=== PATIENT | female | born 1980 | race Caucasian/White ===

== ENCOUNTER 2016-06-24 15:12 | Observation (INO) | payer MEDICAID, OTHER ==
[~2016-06-24] VITALS: Ht 172.7 cm; Wt 70.1 kg
[2016-06-24] VITALS (7 sets, daily range): BP systolic 104–131; BP diastolic 52–67; PULSE 63–78; RESP 18–20; TEMP 97.8–98.1; O2SAT 97–100
[~2016-06-24 15:12] MED LIST: BENA25TA8 PO; HYDR-3133 PO; PRED20 PO; RANI150 PO
[2016-06-24] MEDS ORDERED: MORPHINE SULFATE 4 MG/ML INJ IV PUSH ONE (15:30)
[2016-06-24] MEDS ORDERED: SODIUM CHLORIDE 0.9% FLUSH 5 ML FLUSH IVF PRN ×2 (15:30→16:45)
--- NOTE | 2016-06-24 15:47 | PD ---
HPI Chief Complaint: Chest Pain Time Seen by Provider: 15:18 Travel History International Travel<30 days: No Contact w/Intl Traveler<30days: No Traveled to known affect area: No History of Present Illness HPI Patient is a 36-year-old female who comes in complaining of chest pain and palpitations. She says for the past few days she has felt palpitations on and off. She says that yesterday the palpitations were accompanied by a pressure- like pain in her chest. She says that went away, but it came on this afternoon while she was sitting down. She says the pain spread up to her jaw and down her left arm. She says it feels like a pressure and a tightness in her chest. She says it makes her feel like she is unable to breathe. She denies nausea or vomiting. She denies any recent travel, she is not on any control. She denies any leg swelling or calf pain. She says she's had a slight cough, but no fever or chills. She is a smoker, but denies any recreational drug use. Her father recently had a heart attack and was diagnosed with CHF. [facility] Past Medical History Asthma: Yes (CHILDHOOD) Cancer: No Cardiovascular Problems: No Diabetes: No Diminished Hearing: No Endocrine: No Gastrointestinal Disorders: Yes (reflux) GERD: Yes Genitourinary: No Headaches: Yes Hepatitis: No Hiatal Hernia: No Hypertension: No Immune Disorder: No Musculoskeletal: Yes (spinal pain neck and back) Neurologic: Yes (headaches and migraines) Psychiatric: No Reproductive: Yes (fibroids urinary leakage) Respiratory: No Immunizations Current: Yes Thyroid Disease: No ?: Not Menopausal: No : 3 Para: 3 Miscarriage: 0 : 1 Ovarian Cysts: Yes Past Surgical History Abdominal Surgery: Yes (laproscopic surgery for endometriosis) AICD: No Genitourinary Surgery: Yes (ENDOMITRIOSIS) Gynecologic Surgery: Yes (laparoscopy) Hysterectomy: Yes Joint Replacement: No Pacemaker: No Other Surgery: Yes (LAPROSCOPY) Social History Alcohol Use: Yes (SOCIAL) Tobacco Use: Yes (1 PPD) Substance Use: No Allergies-Medications (Allergen,Severity, Reaction): Coded Allergies: Succinylcholine (Verified Allergy, Severe, maternal grandmother had hypertension and bronchospasms, 12/20/15) Tylenol (Verified Allergy, Severe, stomach pain, 12/20/15) Reported Meds & Prescriptions Reported Meds & Active Scripts Active Deltasone 20 Mg Tab (Prednisone) 20 Mg Tab 60 Mg PO DAILY Hydroxyzine Hcl (Hydroxyzine HCl) 25 Mg Tab 25 Mg PO Q8H Deltasone 20 Mg Tab (Prednisone) 20 Mg Tab 40 Mg PO DAILY 5 Days Zantac 150 Mg Tab (Ranitidine HCl) 150 Mg Tab 150 Mg PO DAILY Reported Benadryl 25 mg tab (Diphenhydramine HCl) 25 Mg Tab 25 Mg PO Q4H Review of Systems Except as stated in HPI: all other systems reviewed are Neg General / Constitutional: No: Fever, Chills Eyes: No: Blurred Vision HENT: No: Headaches, Lightheadedness Cardiovascular: Positive: Chest Pain or Discomfort, Palpitations Respiratory: Positive: Shortness of Breath Gastrointestinal: No: Nausea, Vomiting, Abdominal Pain Musculoskeletal: No: Myalgias, Edema Skin: No Rash, No Itching Neurologic: No: Weakness Physical Exam Narrative GENERAL: Awake and alert, in no acute distress. SKIN: Warm and dry. HEAD: Atraumatic. Normocephalic. EYES: Pupils equal and round. No scleral icterus. ENT: Mucous membranes pink and moist. NECK: Trachea midline. No JVD. CARDIOVASCULAR: Regular rate and rhythm. No murmur appreciated. RESPIRATORY: No accessory muscle use. Clear to auscultation. Breath sounds equal bilaterally. GASTROINTESTINAL: Abdomen soft, non-tender, nondistended. MUSCULOSKELETAL: No obvious deformities. No clubbing. No cyanosis. No edema. No calf tenderness. NEUROLOGICAL: Awake and alert. No obvious cranial nerve deficits. Motor grossly within normal limits. Normal speech. PSYCHIATRIC: Appropriate mood and affect; insight and judgment normal. Data Data Last Documented VS Vital Signs Date Time Temp Pulse Resp B/P Pulse Ox O2 Delivery O2 Flow Rate FiO2 06/24/16 15:39 98 Room Air 06/24/16 15:17 97.8 78 18 131/67 Orders Ckmb (Isoenzyme) Profile (06/24/16 15:24) Complete Blood Count With Diff (06/24/16 15:24) Comprehensive Metabolic Panel (06/24/16 15:24) D-Dimer (06/24/16 15:24) Magnesium (Mg) (06/24/16 15:24) Prothrombin Time / Inr (Pt) (06/24/16 15:24) Act Partial Throm Time (Ptt) (06/24/16 15:24) Troponin I (06/24/16 15:24) Ecg Monitoring (06/24/16 15:24) Bilateral Bp Monitoring (06/24/16 15:24) Iv Access Insert/Monitor (06/24/16 15:24) Oximetry (06/24/16 15:24) Morphine Inj (Morphine Inj) (06/24/16 15:30) Sodium Chloride 0.9% Flush (Ns Flush) (06/24/16 15:30) Chest, Pa & Lat (06/24/16 15:24) MDM Medical Decision Making Medical Screen Exam Complete: Yes Emergency Medical Condition: Yes Medical Record Reviewed: Yes Interpretation(s) ECG shows normal sinus rhythm at 82, no ST elevation or depression, normal intervals. Differential Diagnosis Pneumonia versus pneumothorax versus costochondritis versus ACS versus NSTEMI Narrative Course Patient is a 36-year-old female comes in complaining of chest pain that radiates to her jaw and left arm. Exam shows no acute abnormalities. IV established, patient connected to the cardiac technologist. Labs sent. Chest x-ray performed. Aspirin held as patient reports taking 2 packets of BC powder today. Patient signed out to Dr. Perry to follow up labs and disposition appropriately. Rose Larson MD Jun 24, 2016 15:47
--- NOTE | 2016-06-24 15:48 | RADHPO ---
EXAM DATE/TIME: 06/24/2016 15:27 [place] COMPARISON: No previous studies available for comparison. INDICATIONS : Chest pain and shortness of breath for a day. MEDICAL HISTORY : None. SURGICAL HISTORY : None. ENCOUNTER: Initial ACUITY: 1 day PAIN SCORE: 8/10 LOCATION: Bilateral chest FINDINGS: PA and lateral views of the chest demonstrate the lungs to be symmetrically aerated without evidence of mass, infiltrate or effusion. The cardiomediastinal contours are unremarkable. Osseous structure s are intact. CONCLUSION: No acute disease. Fran Chris MD on June 24, 2016 at 15:47 Board Certified Radiologist. This report was verified electronically.
[2016-06-24 16:00] LABS: AUTOMATED NEUTROPHIL # 3.8 TH/MM3 (1.8-7.7); BASOPHIL # 0.1 TH/MM3 (0-0.2); BASOPHIL % 1.5 % (0.0-2.0); EOSINOPHIL # 0.1 TH/MM3 (0-0.4); EOSINOPHIL % 1.5 % (0.0-4.0); HEMATOCRIT 38.1 % (35.0-46.0); HEMO FLAGS DIFF FINAL; LYMPH % 28.4 % (9.0-44.0); LYMPHOCYTE # 1.9 TH/MM3 (1.0-4.8); MEAN CELL VOLUME 89.1 FL (80.0-100.0); MEAN CORPUSCULAR HEMOGLOBIN 31.2 PG (27.0-34.0); MEAN CORPUSCULAR HGB CONC 35.1 % (32.0-36.0); MONO % 10.6 % (0.0-8.0); PLATELET COUNT 223 TH/MM3 (150-450); RED BLOOD COUNT 4.27 MIL/MM3 (4.00-5.30); RED CELL DISTRIBUTION WIDTH 11.9 % (11.6-17.2); WHITE BLOOD COUNT 6.6 TH/MM3 (4.0-11.0)
[2016-06-24 16:07] LABS: CHLORIDE 111 MEQ/L (98-107); POTASSIUM 3.7 MEQ/L (3.5-5.1); SODIUM (NA) 143 MEQ/L (136-145)
[2016-06-24 16:13] LABS: ANION GAP 8 MEQ/L (5-15); BICARBONATE 24.2 MEQ/L (21.0-32.0); MAGNESIUM 2.3 MG/DL (1.5-2.5)
[2016-06-24 16:14] LABS: BLOOD UREA NITROGEN 14 MG/DL (7-18)
[2016-06-24 16:16] LABS: ALT (GPT) 11 U/L (10-53)
[2016-06-24 16:17] LABS: AST (GOT) 7 U/L (15-37); GLOMERULAR FILTRATION RATE 98 ML/MIN (>89)
[2016-06-24 16:18] LABS: TOTAL BILIRUBIN ADULT 0.6 MG/DL (0.2-1.0)
[2016-06-24 16:19] LABS: ALKALINE PHOSPHATASE 40 U/L (45-117)
[2016-06-24 16:22] LABS: APTT (PATIENT) 26.4 SEC (24.3-30.1); PROTHROMBIN TIME - PATIENT 10.6 SEC (9.8-11.6)
[2016-06-24 16:27] LABS: CREATINE KINASE 86 U/L (26-192)
--- NOTE | 2016-06-24 16:39 | PD ---
Physical Exam Date Seen by Provider: Jun 24, 2016 Time Seen by Provider: 16:00 Narrative Patient presents for evaluation of chest tightness which radiates to the left neck and warm. She reports some associated fatigue. Onset of symptoms was a couple of days ago. Pertinent history is that she has a family history of coronary artery disease (ftr at a young age) and she is a smoker. Data Data Last Documented VS Vital Signs Date Time Temp Pulse Resp B/P Pulse Ox O2 Delivery O2 Flow Rate FiO2 06/24/16 15:50 104/52 131/62 06/24/16 15:39 98 Room Air 06/24/16:17 97.8 78 18 Orders Ckmb (Isoenzyme) Profile (06/24/16 15:24) Complete Blood Count With Diff (06/24/16 15:24) Comprehensive Metabolic Panel (06/24/16 15:24) D-Dimer (06/24/16 15:24) Magnesium (Mg) (06/24/16 15:24) Prothrombin Time / Inr (Pt) (06/24/16 15:24) Act Partial Throm Time (Ptt) (06/24/16 15:24) Troponin I (06/24/16 15:24) Ecg Monitoring (06/24/16 15:24) Bilateral Bp Monitoring (06/24/16 15:24) Iv Access Insert/Monitor (06/24/16 15:24) Oximetry (06/24/16 15:24) Morphine Inj (Morphine Inj) (06/24/16 15:30) Sodium Chloride 0.9% Flush (Ns Flush) (06/24/16 15:30) Chest, Pa & Lat (06/24/16 15:24) Place In Observation (06/24/16 16:45) Activity Bed Rest With Brp (06/24/16 16:45) Vital Signs (Adult) Q4H (06/24/16 16:45) Cardiac Rhythm .As Directed (06/24/16 16:45) ^ Notify Dr: Other .PRN (06/24/16 16:45) ^ Notify . Parameters (06/24/16 16:45) Resp Oxygen Nasal Cannula (06/24/16 ) Diet Heart Healthy (06/24/16 Dinner) Ckmb (Isoenzyme) Profile (06/24/16 19:00) Ckmb (Isoenzyme) Profile (06/24/16 22:00) Troponin I (06/24/16 19:00) Troponin I (06/24/16 22:00) Electrocardiogram (06/24/16 19:00) Electrocardiogram (06/24/16 22:00) ^ Obtain (06/24/16 16:45) Admit Order (Ed Use Only) (06/24/16 16:46) Sodium Chloride 0.9% Flush (Ns Flush) (06/24/16 16:45) Sodium Chloride 0.9% Flush (Ns Flush) (06/24/16 21:00) Ondansetron Inj (Zofran Inj) (06/24/16 16:45) Nitroglycerin Sl (Nitrostat Sl) (06/24/16 16:45) Aspirin (Aspirin) (06/25/16 09:00) [place]ackman / Telemetry DUARTE.Q8H (06/24/16 16:45) Scd Bilateral/Knee High DUARTE.BID (06/24/16 16:45) Ibuprofen (Motrin) (06/24/16 16:45) Labs Laboratory Tests Test 06/24/16 15:45 White Blood Count 6.6 TH/MM3 Red Blood Count 4.27 MIL/MM3 Hemoglobin 13.3 GM/DL Hematocrit 38.1 % Mean Corpuscular Volume 89.1 FL Mean Corpuscular Hemoglobin 31.2 PG Mean Corpuscular Hemoglobin 35.1 % Concent Red Cell Distribution Width 11.9 % Platelet Count 223 TH/MM3 Mean Platelet Volume 7.9 FL Neutrophils (%) (Auto) 58.0 % Lymphocytes (%) (Auto) 28.4 % Monocytes (%) (Auto) 10.6 % Eosinophils (%) (Auto) 1.5 % Basophils (%) (Auto) 1.5 % Neutrophils # (Auto) 3.8 TH/MM3 Lymphocytes # (Auto) 1.9 TH/MM3 Monocytes # (Auto) 0.7 TH/MM3 Eosinophils # (Auto) 0.1 TH/MM3 Basophils # (Auto) 0.1 TH/MM3 CBC Comment DIFF FINAL Differential Comment Prothrombin Time 10.6 SEC Prothromb Time International 1.0 RATIO Ratio Activated Partial 26.4 SEC Thromboplast Time D-Dimer Quantitative (PE/DVT) 0.21 MG/L FEU Sodium Level 143 MEQ/L Potassium Level 3.7 MEQ/L Chloride Level 111 MEQ/L Carbon Dioxide Level 24.2 MEQ/L Anion Gap 8 MEQ/L Blood Urea Nitrogen 14 MG/DL Creatinine 0.68 MG/DL Estimat Glomerular Filtration 98 ML/MIN Rate Random Glucose 87 MG/DL Calcium Level 7.8 MG/DL Magnesium Level 2.3 MG/DL Total Bilirubin 0.6 MG/DL Aspartate Amino Transf 7 U/L (AST/SGOT) Alanine Aminotransferase 11 U/L (ALT/SGPT) Alkaline Phosphatase 40 U/L Total Creatine Kinase 86 U/L Troponin I LESS THAN 0.02 NG/ML Total Protein 6.6 GM/DL Albumin 3.6 GM/DL MDM Supervised Visit with JENSEN: No Differential Diagnosis Differential diagnosis of chest pain includes but is not limited to musculoskeletal pain, pulmonary embolism, acute coronary syndrome, pneumonia, pleurisy Narrative Course Care was assumed from Dr. Larson at 1600 pending her workup. CBC & BMP Diagram 06/24/16 15:45 Last Impressions Chest X-Ray 06/24/16 1524 Signed Impressions: Service Date/Time: Friday, June 24, 2016 15:27 - CONCLUSION: No acute disease. Fran Chris MD Cardiac enzymes are negative. D-dimer is normal. Patient reports that she is amenable to admission to the chest pain center for further evaluation. Physician Communication Physician Communication Dr. Farrell will admit to the [facility]. Diagnosis Primary Impression: Chest pain Qualified Code: R07.9 - Chest pain, unspecified type Admitting Information Admitting Physician Requests: Observation Scripts No Active Prescriptions or Reported Meds Condition: Peggy Piper MD Jun 24, 2016 16:38
[2016-06-24] MEDS ORDERED: ONDANSETRON HCL 4 MG/2 ML VIAL IV PRN (16:45)
[2016-06-24] MEDS ORDERED: NITROGLYCERIN 0.4 MG SL 25 TABS/BTL SL PRN (16:45)
[2016-06-24] MEDS: IBUPROFEN 400 MG TAB PO PRN (19:44)
[2016-06-24 19:57] LABS: CREATINE KINASE 78 U/L (26-192)
[2016-06-24 23:34] LABS: CREATINE KINASE 73 U/L (26-192)
[2016-06-25] VITALS: BP 109/62; PULSE 73; RESP 20; TEMP 98.9; O2SAT 97
[2016-06-25] MEDS ORDERED: KETOROLAC TROMETHAMINE 30 MG/ML (IVP) VIAL IV PUSH ONE (00:15)
[2016-06-25] MEDS: SODIUM CHLORIDE 0.9% FLUSH 5 ML FLUSH IVF SCH ×2 (00:21→08:03)
[2016-06-25 03:41] VITALS: O2SAT 97
[2016-06-25 04:00] VITALS: BP 96/58; PULSE 67; RESP 20; TEMP 98; O2SAT 98
[2016-06-25] MEDS: IBUPROFEN 400 MG TAB PO PRN (05:46)
--- NOTE | 2016-06-25 07:19 | HHI.HP ---
[facility] Service [facility] Primary Care Physician No Primary Care Physician Admission Diagnosis chest pain Diagnoses: (1) Chest pain Diagnosis: Principal Chief Complaint: Chest pain Travel History International Travel<30 Days: No Contact w/Intl Traveler <30 Da: No Traveled to Known Affected Are: No History of Present Illness 36-year-old female with known history of migraine cephalgia who presented to hospital because of chest discomfort. Patient states that she is had intermittent chest discomfort over the last 12 years. She states that she was told that her heart skips a beat periodically. She states that she had an episode of this on Thursday of last week where she felt her heart skipping beats and then developed a tightness in her chest that went up into her neck with difficulty in breathing, this discomfort did go and its own without any medications. She is doing fine and so she woke up yesterday morning and she is developed the feeling that her heart was skipping a beat again. At 2:00 in the afternoon she developed a tightness in her chest again going up into her neck and pain into her left arm. This was persistent until her came home at approximately 3 PM and she came to the hospital for evaluation. Patient was evaluated in emergency department she was given Toradol and morphine in the emergency department her pain resolved. Patient denies any nausea, vomiting, diaphoresis. She does get associated shortness of breath with the discomfort. Patient does indicate that she's been under a lot of stress and that she does notice that her heart has palpitations more whenever she is under stress. Patient has never had any cardiac workup. She does have increased risk factors to include tobacco use and family history of heart disease. Is recommended by ER physician that the patient be observed in the chest pain center for further evaluation Review of Systems Constitutional: DENIES: Diaphoretic episodes, Fatigue, Fever, Weight gain, Weight loss, Chills, Dizziness, Change in appetite, Night Sweats Eyes: DENIES: Blurred vision, Diplopia, Eye inflammation, Eye pain, Vision loss , Double Vision Ears, nose, mouth, throat: DENIES: Vertigo, Nasal discharge, Throat pain, Ear Pain, Running Nose, Sinus Pain Respiratory: COMPLAINS OF: Shortness of breath, DENIES: Apneas, Cough, Snoring , Wheezing, Hemoptysis, Sputum production Cardiovascular: COMPLAINS OF: Chest pain, DENIES: Palpitations, Syncope, Dyspnea on Exertion, Lower Extremity Edema, Orthopnea Gastrointestinal: DENIES: Abdominal pain, Black stools, Bloody stools, Constipation, Diarrhea, Nausea, Vomiting, Difficulty Swallowing, Anorexia Neurologic: DENIES: Abnormal gait, Headache, Localized weakness, Paresthesias, Seizures, Speech Problems, Tremor, Poor Balance Past Family Social History Past Medical History Gastroesophageal reflux Migraine cephalgia Childhood asthma History of ovarian cyst Neck and back pain Endometriosis Past Surgical History Laparoscopic surgery for endometriosis Hysterectomy Reported Medications Reported Meds & Active Scripts Active No Active Prescriptions or Reported Medications Allergies: Coded Allergies: Succinylcholine (Verified Allergy, Severe, maternal grandmother had hypertension and bronchospasms, 12/20/15) Tylenol (Verified Allergy, Severe, stomach pain, 12/20/15) Family History Reviewed is significant for father having myocardial infarction, heart disease, coronary artery disease with stenting, COPD. Social History Patient does smoke one pack a cigarettes a day since she was 12 years old, does use alcohol occasionally. Denies any illicit drug use Physical Exam Vital Signs Vital Signs Date Time Temp Pulse Resp B/P Pulse Ox O2 Delivery O2 Flow Rate FiO2 06/25/16 04:00 98.0 67 20 96/58 98 06/25/16 03:41 97 21 06/25/16 00:00 98.9 73 20 109/62 97 06/24/16 23:00 75 06/24/16 20:00 98.1 63 20 105/64 99 06/24/16 20:00 69 06/24/16 19:47 74 18 97 06/24/16 19:46 Room Air 06/24/16 19:32 72 18 106/57 97 Room Air 06/24/16 17:16 71 18 111/60 97 Room Air 06/24/16 15:50 104/52 131/62 06/24/16 15:39 98 Room Air 06/24/16 15:17 97.8 78 18 131/67 100 Physical Exam GENERAL: Well-developed, well-nourished, in no acute distress. alert and orientated HEENT: Head is normocephalic without any lesions or masses noted. Facial features are symmetric. Eyes: Pupils equal round reactive to light. Extraocular muscles are intact. Conjunctivae were clear. Oropharyngeal: Pharynx without any erythema edema. Tongue is midline without deviation. Buccal mucosa is moist without any masses or lesions NECK: Supple without any masses. Trachea midline no deviation. No JVD, no bruits are appreciated CARDIAC: Regular rhythm, regular rate. S1/S2 are heard. No murmurs gallops or rubs. LUNGS: Clear to auscultation bilaterally. No wheeze, rhonchi or rales. No use of accessory muscles on inspiration or expiration. ABDOMEN: Soft, nontender. Nondistended. Bowel sounds heard in all 4 quadrants. No organomegaly or masses. Negative rebound, negative guarding EXTREMITIES: No edema, pulses are equal bilaterally. No cyanosis or clubbing NEUROLOGY: Mood and affect appear appropriate. Cranial nerves II through XII grossly intact. Muscle strength 5/5 in upper and lower extremities bilaterally. Deep tendon reflexes are 2+ in upper and lower extremities bilaterally. Laboratory Laboratory Tests Test 06/24/16 06/24/16 06/24/16 15:45 19:07 22:05 White Blood Count 6.6 Red Blood Count 4.27 Hemoglobin 13.3 Hematocrit 38.1 Mean Corpuscular Volume 89.1 Mean Corpuscular Hemoglobin 31.2 Mean Corpuscular Hemoglobin 35.1 Concent Red Cell Distribution Width 11.9 Platelet Count 223 Mean Platelet Volume 7.9 Neutrophils (%) (Auto) 58.0 Lymphocytes (%) (Auto) 28.4 Monocytes (%) (Auto) 10.6 Eosinophils (%) (Auto) 1.5 Basophils (%) (Auto) 1.5 Neutrophils # (Auto) 3.8 Lymphocytes # (Auto) 1.9 Monocytes # (Auto) 0.7 Eosinophils # (Auto) 0.1 Basophils # (Auto) 0.1 CBC Comment DIFF FINAL Differential Comment Prothrombin Time 10.6 Prothromb Time International 1.0 Ratio Activated Partial 26.4 Thromboplast Time D-Dimer Quantitative (PE/DVT) 0.21 Sodium Level 143 Potassium Level 3.7 Chloride Level 111 Carbon Dioxide Level 24.2 Anion Gap 8 Blood Urea Nitrogen 14 Creatinine 0.68 Estimat Glomerular Filtration 98 Rate Random Glucose 87 Calcium Level 7.8 Magnesium Level 2.3 Total Bilirubin 0.6 Aspartate Amino Transf 7 (AST/SGOT) Alanine Aminotransferase 11 (ALT/SGPT) Alkaline Phosphatase 40 Total Creatine Kinase 86 78 73 Troponin I LESS THAN 0.02 LESS THAN 0.02 LESS THAN 0.02 Total Protein 6.6 Albumin 3.6 Result Diagram: 06/24/16 1545 06/24/16 1545 Imaging Last Impressions Chest X-Ray 06/24/16 1524 Signed Impressions: Service Date/Time: Friday, June 24, 2016 15:27 - CONCLUSION: No acute disease. Fran Chris MD Assessment and Plan Assessment and Plan Chest pain with tightness radiating into the neck and left arm and associated shortness of breath Patient with increased risk factors include tobacco use, family history of heart disease Chest x-rays unremarkable for any acute abnormality, d-dimer was performed which was negative for any embolic event Serial cardiac enzymes were performed and reviewed by myself and remained negative for any acute coronary event Serial EKGs were performed and reviewed by myself and showed normal sinus rhythm without any changes Exercise stress test was performed and did not indicate any ischemia Continue aspirin and nitroglycerin as needed DVT prevention Sequential compression devices Written by Joaquin Corcoran PA-C, acting as scribe for Dr. Farrell on 06/25/16 at 1040. The documentation accurately reflects the work and decisions performed face-to- face by Dr. Farrell on 06/25/16 at 1040. Discharge disposition Discharge home in stable condition Activity: Ad leonard. Diet: Regular diet Medications per medication reconciliation Follow-up with primary medical doctor in one week Problem Qualifiers (1) Chest pain: Qualified Code: R07.9 - Chest pain, unspecified type Joaquin Corcoran Jun 25, 2016 07:19
[2016-06-25 08:00] VITALS: PULSE 72; RESP 17; TEMP 98.1; O2SAT 95
[2016-06-25 08:03] VITALS: PULSE 63
[2016-06-25 08:28] VITALS: O2SAT 95
[2016-06-25] MEDS ORDERED: ASPIRIN 325 MG TAB PO SCH (09:00)
--- NOTE | 2016-06-25 09:05 | HHI.DCPOC ---
Discharge Care Plan Diagnosis: (1) Chest pain Your Health Problems Are: Chest Pain Goals to Promote Your Health * To prevent worsening of your condition and complications * To maintain your health at the optimal level Directions to Meet Your Goals Take your medications as prescribed Follow your dietary instruction Follow activity as directed Keep your appointments as scheduled Take your immunizations and boosters as scheduled If your symptoms worsen call your PCP, if no PCP go to Urgent Care Center or Emergency Room Smoking is Dangerous to Your Health. Avoid second hand smoke Call the 24-hour hour crisis hotline for domestic abuse at Joaquin Corcoran Jun 25, 2016 09:05
--- NOTE | 2016-06-25 22:56 | EKG ---
Date Performed: 06/24/2016 Time Performed: 21:59:40 PTAGE: 36 years EKG: Sinus rhythm Rightward axis Borderline ECG PREVIOUS TRACING : 06/24/2016 18.50 DOCTOR: Ginny Maloney Interpretating Date/Time 06/25/2016 22:54:00
--- NOTE | 2016-06-25 22:59 | EKG ---
Date Performed: 06/24/2016 Time Performed: 18:50:16 PTAGE: 36 years EKG: Sinus rhythm Rightward axis Septal T wave changes are nonspecific Borderline ECG PREVIOUS TRACING : 06/24/2016 15.18 DOCTOR: Ginny Maloney Interpretating Date/Time 06/25/2016 22:56:36
--- NOTE | 2016-06-25 23:04 | EKG ---
Date Performed: 06/24/2016 Time Performed: 15:18:58 PTAGE: 36 years EKG: Sinus rhythm Rightward axis Borderline ECG PREVIOUS TRACING : 10/23/2015 11.08 DOCTOR: Ginny Maloney Interpretating Date/Time 06/25/2016 22:59:09
--- NOTE | 2016-06-27 17:17 | TR ---
Date Performed: 06/25/2016 Time Performed: 08:37:24 DOCTOR: Eren Poole DRUG LIST: CLINICAL HISTORY: CHEST PAIN REASON FOR TEST: Chest pain. REASON FOR ENDING: Completed Protocol OBSERVATION: Arrhythmia: None Chest Pain: None CONCLUSION: Patient tolerated JAYLAN protocol with Total Exercise Time=9:00 Maximum QC=444 % Max HR Achieved=89.0% Maximum HK=240/80, Testing stopped secondary to goals acheived, Patient reached tar get HR. During peak exercise, patient was asymptomatic, No significant ST depressions, Quick upslopin g ST segments. HR and BP appropriate response to exercise. Recovery period, Patient was asymptomatic, HR and BP returned to baseline COMMENTS: Patient exercised using the Jaylan protocol. No electrocardiographic changes were seen to suggest ischemia. Hemodynamic response to exercise was normal. No significant arrhythmia was prese nt.
== END 2016-06-25 11:58 | disposition home or self-care (01) ==
LOC: PHED 15:12 → PHEDA 16:47 → PH3B 19:57
PROVIDERS: ADMIT Family Medicine; ATTEND Family Medicine
DX: R07.9 Chest pain, unspecified (principal); R68.84 Jaw pain; M79.602 Pain in left arm; R06.02 Shortness of breath; F17.210 Nicotine dependence, cigarettes, uncomplicated; G43.909 Migraine, unspecified, not intractable, without status migrainosus; K21.9 Gastro-esophageal reflux disease without esophagitis; Z82.49 Family history of ischemic heart disease and other diseases of the circulatory system
CPT/HCPCS: 71020; 80053; 82550; 83735; 84484; 85025; 85379; 85610; 85730; 93005; 93017; 96374; 99285; G0378; J1885; J2270

== ENCOUNTER 2016-07-25 03:22 | Emergency (ER) | payer MEDICAID, OTHER ==
[~2016-07-25] VITALS: Ht 175.3 cm; Wt 69.7 kg
[2016-07-25 03:29] VITALS: BP 110/72; PULSE 101; RESP 16; TEMP 99.2; O2SAT 96
[2016-07-25 03:30] VITALS: BP 110/72; PULSE 100; RESP 16; O2SAT 97
[2016-07-25] MEDS ORDERED: SODIUM CHLOR 0.9% 1000 ML INJ 1,000 ML IV SCH (03:43)
[2016-07-25] MEDS ORDERED: KETOROLAC TROMETHAMINE 30 MG/ML (IVP) VIAL IVP ONE (03:45)
[2016-07-25] MEDS ORDERED: SODIUM CHLORIDE 0.9% FLUSH 5 ML FLUSH IVF PRN (03:45)
[2016-07-25] MEDS ORDERED: diphenhydrAMINE HCL 50 MG/ML VIAL IV PUSH ONE (03:45)
[2016-07-25] MEDS ORDERED: METOCLOPRAMIDE HCL 10 MG/2 ML VIAL IV PUSH ONE (03:45)
--- NOTE | 2016-07-25 03:50 | PD ---
HPI Chief Complaint: GI Complaint Time Seen by Provider: 03:43 Travel History International Travel<30 days: No Contact w/Intl Traveler<30days: No Traveled to known affect area: No History of Present Illness HPI 36-year-old female arrives to the ER by private auto due to nausea over the last several hours. She's had a fever as high as 101.8. She complains of pain in the left upper quadrant which radiates to the back. She states she is dehydrated. She cannot tolerate oral hydration with water. Nausea. She has no urinary complaint. There is no chest pain or shortness of breath. Last menstruation was about 2 weeks ago. Hysterectomy was performed about one year ago however the patient still has menstruation is she reports. There is an allergy last couple days. She denies drug or alcohol abuse. She smokes one pack per day. She reports a generalized pounding headache for the past several hours c/w her hx migraines. No sick contact reported. PFSH Past Medical History Asthma: Yes (CHILDHOOD) Cancer: No Cardiovascular Problems: Yes (REPORTS HISTORY OF CHEST PAIN) Diabetes: No Diminished Hearing: No Endocrine: No Gastrointestinal Disorders: Yes (reflux) GERD: Yes Genitourinary: No Headaches: Yes Hepatitis: No Hiatal Hernia: No Hypertension: No Immune Disorder: No Musculoskeletal: Yes (spinal pain neck and back) Neurologic: Yes (headaches and migraines) Psychiatric: No Reproductive: Yes (fibroids urinary leakage) Respiratory: No Immunizations Current: Yes Thyroid Disease: No ?: Not Menopausal: No : 3 Para: 3 Miscarriage: 0 : 1 Ovarian Cysts: Yes Past Surgical History Abdominal Surgery: Yes (laproscopic surgery for endometriosis) AICD: No Genitourinary Surgery: Yes (ENDOMITRIOSIS) Gynecologic Surgery: Yes (laparoscopy) Hysterectomy: Yes Joint Replacement: No Pacemaker: No Other Surgery: Yes (LAPROSCOPY) Family History Family Myocardial Infarction: Yes (FATHER) Social History Alcohol Use: Yes (SOCIAL) Tobacco Use: Yes (1 PPD) Substance Use: No Allergies-Medications (Allergen,Severity, Reaction): Coded Allergies: Succinylcholine (Verified Allergy, Severe, maternal grandmother had hypertension and bronchospasms, 07/25/16) Tylenol (Verified Allergy, Severe, stomach pain, 07/25/16) Reported Meds & Prescriptions Reported Meds & Active Scripts Active Zofran Odt (Ondansetron Odt) 4 Mg Tab 4 Mg SL Q8HR PRN Review of Systems Except as stated in HPI: all other systems reviewed are Neg General / Constitutional: Positive: Fever Cardiovascular: No: Chest Pain or Discomfort, Palpitations Gastrointestinal: Positive: Nausea, No: Vomiting, Diarrhea Genitourinary: No: Urgency, Frequency, Discharge Physical Exam Narrative GENERAL: 36 yo F, WNWD, mild distress SKIN: Warm and dry. HEAD: Atraumatic. Normocephalic. EYES: Pupils equal and round. No scleral icterus. No injection or drainage. ENT: No nasal bleeding or discharge. Mucous membranes pink and moist. NECK: Trachea midline. No JVD. CARDIOVASCULAR: Regular rate and rhythm. RESPIRATORY: No accessory muscle use. Clear to auscultation. Breath sounds equal bilaterally. GASTROINTESTINAL: Soft. No focal tenderness in the abdomen. Minimal tenderness to percussion in the flank on the right side. MUSCULOSKELETAL: Extremities without clubbing, cyanosis, or edema. No obvious deformities. NEUROLOGICAL: Awake and alert. No obvious cranial nerve deficits. Motor grossly within normal limits. Five out of 5 muscle strength in the arms and legs. Normal speech. PSYCHIATRIC: Appropriate mood and affect; insight and judgment normal. Data Data Last Documented VS Vital Signs Date Time Temp Pulse Resp B/P Pulse Ox O2 Delivery O2 Flow Rate FiO2 07/25/16 04:00 85 20 108/65 97 Room Air 07/25/16 03:29 99.2 Vital signs reviewed Orders Complete Blood Count With Diff (07/25/16 03:43) Comprehensive Metabolic Panel (07/25/16 03:43) Lipase (07/25/16 03:43) Urinalysis - C+S If Indicated (07/25/16 03:43) Iv Access Insert/Monitor (07/25/16 03:43) Ecg Monitoring (07/25/16 03:43) Oximetry (07/25/16 03:43) Sodium Chlor 0.9% 1000 Ml Inj (Ns 1000 M (07/25/16 03:43) Sodium Chloride 0.9% Flush (Ns Flush) (07/25/16 03:45) Ketorolac Inj (Toradol Inj) (07/25/16 03:45) Ed Urine Pregnancytest Poc (07/25/16 03:43) Metoclopramide Inj (Reglan Inj) (07/25/16 03:45) Diphenhydramine Inj (Benadryl Inj) (07/25/16 03:45) Labs Laboratory Tests Test 07/25/16 07/25/16 03:45 04:00 Urine Collection Type VOIDED Urine Color NONE Urine Turbidity CLEAR Urine pH 5.5 Urine Specific [place] 1.005 Urine Protein NEG mg/dL Urine Glucose (UA) NEG mg/dL Urine Ketones NEG mg/dL Urine Occult Blood NEG Urine Nitrite NEG Urine Bilirubin NEG Urine Leukocyte Esterase NEG Urine WBC 0-2 /hpf Urine Squamous Epithelial >8 /hpf Cells Urine Bacteria FEW /hpf Microscopic Urinalysis Comment CULT NOT INDICATED White Blood Count 3.7 TH/MM3 Red Blood Count 4.49 MIL/MM3 Hemoglobin 13.6 GM/DL Hematocrit 40.2 % Mean Corpuscular Volume 89.4 FL Mean Corpuscular Hemoglobin 30.4 PG Mean Corpuscular Hemoglobin 34.0 % Concent Red Cell Distribution Width 12.6 % Platelet Count 174 TH/MM3 Mean Platelet Volume 8.6 FL Neutrophils (%) (Auto) 71.3 % Lymphocytes (%) (Auto) 15.0 % Monocytes (%) (Auto) 12.3 % Eosinophils (%) (Auto) 0.6 % Basophils (%) (Auto) 0.8 % Neutrophils # (Auto) 2.6 TH/MM3 Lymphocytes # (Auto) 0.6 TH/MM3 Monocytes # (Auto) 0.5 TH/MM3 Eosinophils # (Auto) 0.0 TH/MM3 Basophils # (Auto) 0.0 TH/MM3 CBC Comment DIFF FINAL Differential Comment Sodium Level 143 MEQ/L Potassium Level 3.8 MEQ/L Chloride Level 110 MEQ/L Carbon Dioxide Level 25.4 MEQ/L Anion Gap 8 MEQ/L Blood Urea Nitrogen 12 MG/DL Creatinine 0.76 MG/DL Estimat Glomerular Filtration 87 ML/MIN Rate Random Glucose 90 MG/DL Calcium Level 8.3 MG/DL Total Bilirubin 0.4 MG/DL Aspartate Amino Transf 12 U/L (AST/SGOT) Alanine Aminotransferase 16 U/L (ALT/SGPT) Alkaline Phosphatase 50 U/L Total Protein 6.6 GM/DL Albumin 3.4 GM/DL Lipase 188 U/L [facility] Medical Decision Making Medical Screen Exam Complete: Yes Emergency Medical Condition: Yes Medical Record Reviewed: Yes Differential Diagnosis Constipation, Gastritis, Acute Cholecystitis, Biliary Colic, Pancreatitis, CASILLAS , Hepatitis, Bowel Obstruction, Cystitis, Mesenteric Ischemia, AAA, Appendicitis , Renal Stone/Hydronephrosis, GERD, perforated viscous Narrative Course Patient received Toradol, Reglan and Benadryl. She has remained asleep since arrival. She also received a liter of IV fluids. Blood work is essentially normal. Return precautions discussed. Patient is ready for discharge. Patient verbalized agreement with plan. CBC & BMP Diagram 07/25/16 04:00 LFTs normal Lipase 188 UA: No UTI Diagnosis Primary Impression: Abdominal pain Qualified Code: R10.12 - Left upper quadrant pain Additional Impression: Nausea Referrals: Primary Care Physician 2 days Additional Instructions: You have a choice when it comes to health care, and we are glad that you chose [facility]. Hopefully, we have met your expectations on today's visit. You are welcome to return to [facility] at any time, as we are committed to meeting the health care needs of our community. Med/Other Pt SpecificInfo: Prescription(s) given Scripts Ondansetron Odt (Zofran Odt)4 Mg Tab4 Mg SL Q8HR PRN (Nausea/Vomiting) #10 TAB Ref 0 Prov:Matt Finley MD 07/25/16 Disposition: 01 DISCHARGE HOME Condition: Stable Matt Finley MD Jul 25, 2016 03:50
[2016-07-25 04:00] VITALS: BP 108/65; PULSE 85; RESP 20; O2SAT 97
[2016-07-25 04:40] LABS: BLOOD, URINE NEG (NEG); GLUCOSE,URINE NEG (NEG); KETONE, URINE NEG (NEG); NITRITE,URINE NEG (NEG); PH, URINE 5.5 (5.0-8.5)
[2016-07-25 04:41] LABS: AUTOMATED NEUTROPHIL # 2.6 TH/MM3 (1.8-7.7); BASOPHIL % 0.8 % (0.0-2.0); EOSINOPHIL % 0.6 % (0.0-4.0); HEMATOCRIT 40.2 % (35.0-46.0); HEMO FLAGS DIFF FINAL; LYMPHOCYTE # 0.6 TH/MM3 (1.0-4.8); MEAN CELL VOLUME 89.4 FL (80.0-100.0); MEAN CORPUSCULAR HEMOGLOBIN 30.4 PG (27.0-34.0); MONO % 12.3 % (0.0-8.0); NEUT % 71.3 % (16.0-70.0); PLATELET COUNT 174 TH/MM3 (150-450); RED BLOOD COUNT 4.49 MIL/MM3 (4.00-5.30); RED CELL DISTRIBUTION WIDTH 12.6 % (11.6-17.2); WHITE BLOOD COUNT 3.7 TH/MM3 (4.0-11.0)
[2016-07-25 04:51] LABS: METHOD OF COLLECTION VOIDED
[2016-07-25 04:52] LABS: BACTERIA, URINE FEW /hpf; COMMENT (UR) CULT NOT INDICATED; CULTURE IF INDICATED CULT NOT INDICATED; SQUAMOUS EPITHELIAL CELL URINE >8 /hpf (0-5); WBC, URINE 0-2 /hpf (0-5)
[2016-07-25 04:53] LABS: CHLORIDE 110 MEQ/L (98-107); POTASSIUM 3.8 MEQ/L (3.5-5.1); SODIUM (NA) 143 MEQ/L (136-145)
[2016-07-25 04:57] LABS: ANION GAP 8 MEQ/L (5-15); BICARBONATE 25.4 MEQ/L (21.0-32.0)
[2016-07-25 04:58] LABS: BLOOD UREA NITROGEN 12 MG/DL (7-18)
[2016-07-25 05:00] VITALS: RESP 18
[2016-07-25 05:00] LABS: ALT (GPT) 16 U/L (10-53); AST (GOT) 12 U/L (15-37); GLOMERULAR FILTRATION RATE 87 ML/MIN (>89)
[2016-07-25] MEDS ORDERED: ZOFR4TAB3 SL (05:01)
[2016-07-25 05:02] LABS: TOTAL BILIRUBIN ADULT 0.4 MG/DL (0.2-1.0)
[2016-07-25 05:03] LABS: ALKALINE PHOSPHATASE 50 U/L (45-117)
[2016-07-25 05:24] VITALS: BP 97/57
[2016-07-26] MEDS ORDERED: ZOFR4TAB3 SL (15:34)
[2016-07-26] MEDS ORDERED: ULTR50TA5 PO (15:35)
[2016-07-26] MEDS ORDERED: NAPR500 PO (15:36)
== END 2016-07-25 05:42 | disposition home or self-care (01) ==
LOC: PHED 03:22
DX: R10.12 Left upper quadrant pain (principal); R11.0 Nausea; F17.210 Nicotine dependence, cigarettes, uncomplicated
CPT/HCPCS: 80053; 81001; 83690; 85025; 96365; 96375; 99284; J1200; J1885; J2765; J7030

== ENCOUNTER 2016-07-26 00:44 | Emergency (ER) | payer MEDICAID, OTHER ==
[~2016-07-26] VITALS: Ht 175.3 cm; Wt 70.3 kg
[~2016-07-26 00:44] MED LIST changes: -BENA25TA8 PO; -HYDR-3133 PO; -PRED20 PO; -RANI150 PO; +ZOFR4TAB3 SL
[2016-07-26 00:49] VITALS: BP 116/75; PULSE 96; RESP 18; TEMP 99; O2SAT 96
[2016-07-26 01:18] VITALS: BP 116/75; PULSE 96; RESP 18; TEMP 99
[2016-07-26] MEDS ORDERED: SODIUM CHLOR 0.9% 1000 ML INJ 1,000 ML IV SCH (01:22)
[2016-07-26 01:28] VITALS: BP 112/62; PULSE 90; RESP 18; TEMP 99.4; O2SAT 97
[2016-07-26] MEDS ORDERED: SODIUM CHLORIDE 0.9% FLUSH 5 ML FLUSH IVF PRN (01:30)
[2016-07-26] MEDS ORDERED: MORPHINE SULFATE 4 MG/ML INJ IV PUSH ONE (01:30)
[2016-07-26] MEDS ORDERED: ONDANSETRON HCL 4 MG/2 ML VIAL IVP ONE (01:30)
[2016-07-26 01:42] LABS: AUTOMATED NEUTROPHIL # 2.2 TH/MM3 (1.8-7.7); BASOPHIL % 0.9 % (0.0-2.0); EOSINOPHIL % 0.4 % (0.0-4.0); HEMATOCRIT 41.3 % (35.0-46.0); HEMO FLAGS DIFF FINAL; LYMPH % 16.2 % (9.0-44.0); LYMPHOCYTE # 0.5 TH/MM3 (1.0-4.8); MEAN CELL VOLUME 89.9 FL (80.0-100.0); MEAN CORPUSCULAR HEMOGLOBIN 30.3 PG (27.0-34.0); MEAN CORPUSCULAR HGB CONC 33.7 % (32.0-36.0); MONO % 12.2 % (0.0-8.0); NEUT % 70.3 % (16.0-70.0); PLATELET COUNT 134 TH/MM3 (150-450); RED BLOOD COUNT 4.59 MIL/MM3 (4.00-5.30); RED CELL DISTRIBUTION WIDTH 12.4 % (11.6-17.2); WHITE BLOOD COUNT 3.1 TH/MM3 (4.0-11.0)
[2016-07-26 01:59] LABS: BLOOD, URINE SMALL (NEG); GLUCOSE,URINE NEG (NEG); KETONE, URINE NEG (NEG); NITRITE,URINE NEG (NEG)
[2016-07-26 02:00] LABS: CHLORIDE 108 MEQ/L (98-107); POTASSIUM 3.2 MEQ/L (3.5-5.1); SODIUM (NA) 142 MEQ/L (136-145)
[2016-07-26 02:04] LABS: ANION GAP 9 MEQ/L (5-15); BICARBONATE 24.7 MEQ/L (21.0-32.0); BLOOD UREA NITROGEN 7 MG/DL (7-18)
[2016-07-26 02:06] LABS: ALT (GPT) 18 U/L (10-53); AST (GOT) 19 U/L (15-37)
[2016-07-26 02:07] LABS: GLOMERULAR FILTRATION RATE 83 ML/MIN (>89)
[2016-07-26 02:08] LABS: TOTAL BILIRUBIN ADULT 0.4 MG/DL (0.2-1.0)
[2016-07-26 02:09] LABS: ALKALINE PHOSPHATASE 51 U/L (45-117)
[2016-07-26 02:20] LABS: URINE COLOR STRAW (YELLW/STRAW)
[2016-07-26 02:21] LABS: RBC, URINE 0-3 /hpf (0-3); WBC, URINE 0-2 /hpf (0-5)
[2016-07-26 02:22] LABS: COMMENT (UR) CULT NOT INDICATED; CULTURE IF INDICATED CULT NOT INDICATED
[2016-07-26] MEDS ORDERED: IOHEXOL 350 MG/ML 10 ML VIAL (for RAD DIAG) IV ONE (02:29)
[2016-07-26 02:30] VITALS: BP 91/49; PULSE 68; RESP 18; O2SAT 98
--- NOTE | 2016-07-26 03:13 | RADHPO ---
EXAM DATE/TIME: 07/26/2016 02:22 [place] COMPARISON: No previous studies available for comparison. INDICATIONS : Bilateral lower quadrant pain with painful urination. IV CONTRAST: 96 cc Omnipaque 350 (iohexol) IV ORAL CONTRAST: No oral contrast ingested. RADIATION DOSE: 7.69 CTDIvol (mGy) MEDICAL HISTORY : Gastroesophageal reflux disease. Endometriosis. Ovarian cysts. SURGICAL HISTORY : Hysterectomy. ENCOUNTER: Initial ACUITY: 1 day PAIN SCALE: 8/10 LOCATION: Bilateral lower quadrant TECHNIQUE: Volumetric scanning of the abdomen and pelvis was performed. Using automated exposure control and ad justment of the mA and/or kV according to patient size, radiation dose was kept as low as reasonably achievable to obtain optimal diagnostic quality images. FINDINGS: Lung bases are clear. No acute findings in the liver, spleen, adrenals, kidneys or pancreas. No bilia ry ductal dilatation. No free air. Trace free fluid in the pelvis. CONCLUSION: 1. Trace free fluid in the pelvis which may be physiologic. No acute findings otherwise within the ab domen and pelvis. Nick Rodriguez MD on July 26, 2016 at 3:04 Board Certified Radiologist. This report was verified electronically.
[2016-07-26 03:30] VITALS: BP 92/51; PULSE 70; RESP 18; O2SAT 97
[2016-07-26] MEDS ORDERED: KETOROLAC TROMETHAMINE 30 MG/ML (IVP) VIAL IV PUSH ONE (03:30)
[2016-07-26] MEDS ORDERED: CALCIUM GLUCONATE 500 MG TAB PO ONE (03:30)
[2016-07-26] MEDS ORDERED: POTASSIUM CHLORIDE 20 MEQ CONTROLLED RELEASE TAB PO ONE (03:30)
--- NOTE | 2016-07-26 03:37 | PD ---
HPI Chief Complaint: Abdominal Pain Time Seen by Provider: 01:22 Travel History International Travel<30 days: No Contact w/Intl Traveler<30days: No Traveled to known affect area: No History of Present Illness HPI 36 year-old female presents to the emergency department by private transportation for complaint of lower abdominal pain. Patient was seen for same complaint at 5 AM on Thursday07/25/16. Patient continues to have ongoing symptoms. Patient reportedly at home on had a fever of 10 2F. Patient has had previous hysterectomy due to abnormal uterine bleeding and endometriosis. Patient still has bilateral ovaries. Patient has had no other abdominal surgeries. Patient's had no recent respiratory illness. No reported headache sore throat earache cough congestion shortness of breath chest pain flank pain myalgias or arthralgias. Patient has noted painful urination. No report of hematuria urgency or frequency. No report of skin rash or injury. No report of abnormal vaginal bleeding. Pain is 8/10 in intensity. Patient is unable to identify exacerbating or alleviating factors. PFSH Past Medical History Narrative Medical GERD asthma chest pain endometriosis and dysfunctional uterine bleeding hysterectomy tobacco use alcohol use nursing notes reviewed Asthma: Yes (CHILDHOOD) Cancer: No Cardiovascular Problems: Yes (REPORTS HISTORY OF CHEST PAIN) Diabetes: No Diminished Hearing: No Endocrine: No Gastrointestinal Disorders: Yes (reflux) GERD: Yes Genitourinary: No Headaches: Yes Hepatitis: No Hiatal Hernia: No Hypertension: No Immune Disorder: No Musculoskeletal: Yes (spinal pain neck and back) Neurologic: Yes (headaches and migraines) Psychiatric: No Reproductive: Yes (HYST) Respiratory: No Immunizations Current: Yes Thyroid Disease: No Tetanus Vaccination: Unknown Influenza Vaccination: No ?: Not Menopausal: No : 3 Para: 3 Miscarriage: 0 : 1 Ovarian Cysts: Yes Past Surgical History Abdominal Surgery: Yes (laproscopic surgery for endometriosis) AICD: No Genitourinary Surgery: Yes (ENDOMITRIOSIS) Gynecologic Surgery: Yes (laparoscopy) Hysterectomy: Yes (07/2015) Joint Replacement: No Pacemaker: No Other Surgery: Yes (LAPROSCOPY) Family History Family Myocardial Infarction: Yes (FATHER) Social History Alcohol Use: Yes (SOCIAL) Tobacco Use: Yes (1 PPD) Substance Use: No Allergies-Medications (Allergen,Severity, Reaction): Coded Allergies: Succinylcholine (Verified Allergy, Severe, maternal grandmother had hypertension and bronchospasms, 07/26/16) Tylenol (Verified Allergy, Severe, stomach pain, 07/26/16) Reported Meds & Prescriptions Reported Meds & Active Scripts Active Zofran Odt (Ondansetron Odt) 4 Mg Tab 4 Mg SL Q8HR PRN Review of Systems Except as stated in HPI: all other systems reviewed are Neg General / Constitutional: Positive: Fever, Other (poor oral intake), No: Chills HENT: No: Sore Throat, Congestion Cardiovascular: No: Chest Pain or Discomfort Respiratory: No: Cough, Shortness of Breath Gastrointestinal: Positive: Nausea, Abdominal Pain, No: Vomiting, Diarrhea Genitourinary: Positive: Urgency, Frequency, Dysuria, No: Pelvic Pain, Flank Pain Musculoskeletal: No: Myalgias, Arthralgias Skin: No Rash Neurologic: No: Weakness Psychiatric: No: Anxiety Hematologic/Lymphatic: No: Lymph Node Enlargement Physical Exam Narrative GENERAL: Well-developed well-nourished female in no acute distress no respiratory distress SKIN: Warm and dry. HEAD: Normocephalic. EYES: No scleral icterus. No injection or drainage. NECK: Supple, trachea midline. No JVD or lymphadenopathy. CARDIOVASCULAR: Regular rate and rhythm without murmurs, gallops, or rubs. RESPIRATORY: Breath sounds equal bilaterally. No accessory muscle use. GASTROINTESTINAL: Abdomen soft, mild bilateral lower quadrant tenderness without guarding or rebound, nondistended. MUSCULOSKELETAL: No cyanosis, or edema. BACK: Nontender without obvious deformity. No CVA tenderness. Data Data Last Documented VS Vital Signs Date Time Temp Pulse Resp B/P Pulse Ox O2 Delivery O2 Flow Rate FiO2 07/26/16 01:51 16 07/26/16 01:28 99.4 90 112/62 97 Room Air Orders Complete Blood Count With Diff (07/26/16 01:22) Comprehensive Metabolic Panel (07/26/16:22) Lipase (07/26/16:22) Urinalysis - C+S If Indicated (07/26/16:22) Ct Abd/Pel W Iv Contrast(Rout) (07/26/16:22) Iv Access Insert/Monitor (07/26/16:22) Ecg Monitoring (07/26/16:22) Oximetry (3/18/17 01:22) Morphine Inj (Morphine Inj) (07/26/16 01:30) Ondansetron Inj (Zofran Inj) (07/26/16 01:30) Sodium Chlor 0.9% 1000 Ml Inj (Ns 1000 M (07/26/16 01:22) Sodium Chloride 0.9% Flush (Ns Flush) (07/26/16 01:30) Iohexol 350 Inj (Omnipaque 350 Inj) (07/26/16 02:29) Labs Laboratory Tests Test 07/26/16 07/26/16 01:10 01:35 White Blood Count 3.1 TH/MM3 Red Blood Count 4.59 MIL/MM3 Hemoglobin 13.9 GM/DL Hematocrit 41.3 % Mean Corpuscular Volume 89.9 FL Mean Corpuscular Hemoglobin 30.3 PG Mean Corpuscular Hemoglobin 33.7 % Concent Red Cell Distribution Width 12.4 % Platelet Count 134 TH/MM3 Mean Platelet Volume 7.9 FL Neutrophils (%) (Auto) 70.3 % Lymphocytes (%) (Auto) 16.2 % Monocytes (%) (Auto) 12.2 % Eosinophils (%) (Auto) 0.4 % Basophils (%) (Auto) 0.9 % Neutrophils # (Auto) 2.2 TH/MM3 Lymphocytes # (Auto) 0.5 TH/MM3 Monocytes # (Auto) 0.4 TH/MM3 Eosinophils # (Auto) 0.0 TH/MM3 Basophils # (Auto) 0.0 TH/MM3 CBC Comment DIFF FINAL Differential Comment Sodium Level 142 MEQ/L Potassium Level 3.2 MEQ/L Chloride Level 108 MEQ/L Carbon Dioxide Level 24.7 MEQ/L Anion Gap 9 MEQ/L Blood Urea Nitrogen 7 MG/DL Creatinine 0.79 MG/DL Estimat Glomerular Filtration 83 ML/MIN Rate Random Glucose 120 MG/DL Calcium Level 7.9 MG/DL Total Bilirubin 0.4 MG/DL Aspartate Amino Transf 19 U/L (AST/SGOT) Alanine Aminotransferase 18 U/L (ALT/SGPT) Alkaline Phosphatase 51 U/L Total Protein 6.4 GM/DL Albumin 3.3 GM/DL Lipase 167 U/L Urine Color STRAW Urine Turbidity CLEAR Urine pH 6.0 Urine Specific [place] 1.008 Urine Protein NEG mg/dL Urine Glucose (UA) NEG mg/dL Urine Ketones NEG mg/dL Urine Occult Blood SMALL Urine Nitrite NEG Urine Bilirubin NEG Urine Leukocyte Esterase TRACE Urine RBC 0-3 /hpf Urine WBC 0-2 /hpf Urine Squamous Epithelial 6-8 /hpf Cells Microscopic Urinalysis Comment CULT NOT INDICATED MDM Medical Decision Making Medical Screen Exam Complete: Yes Emergency Medical Condition: Yes Medical Record Reviewed: Yes Interpretation(s) Last Impressions Abdomen/Pelvis CT 07/26/16 0122 Signed Impressions: Service Date/Time: Tuesday, July 26, 2016 02:22 - CONCLUSION: 1. Trace free fluid in the pelvis which may be physiologic. No acute findings otherwise within the abdomen and pelvis. Nick Rodriguez MD CBC & BMP Diagram 07/26/16 01:10 Vital Signs Date Time Temp Pulse Resp B/P Pulse Ox O2 Delivery O2 Flow Rate FiO2 07/26/16 01:51 16 07/26/16 01:28 99.4 90 18 112/62 97 Room Air 07/26/16 01:18 99.0 96 18 116/75 07/26/16 00:49 99.0 96 18 116/75 96 Differential Diagnosis Abdominal pain, UTI, renal colic, appendicitis, ovarian cyst rupture, bowel obstruction, viral syndrome, also to consider ovarian torsion, abdominal aortic aneurysm, mesenteric ischemia Narrative Course IV access obtained specimens collected and sent for resulting IV fluids administered; patient administered morphine sulfate 3 mg IV along with Zofran 4 mg IV Patient receiving IV fluids resting comfortably lab values pending Lab values resulted and found to be grossly within normal limits except for decrease total white cell count and mild electrolyte disturbance most likely reflective of recent IV fluid hydration CT abdomen and pelvis per reading radiologist Dr. Rodriguez no acute intra-abdominal or pelvic abnormality trace physiologic free fluid in the pelvis only. Based on vital signs heart rate greater than 90 and CBC total white cell count less than 4000 patient does fit SIRS criteria but afebrile here and normalization of vital signs after IV fluids. Patient with poor oral intake today. At 3:30 AM patient clinically improved and stable for outpatient management; patient administered oral replacement of potassium and calcium; patient given Toradol for ongoing generalized pain although improved after morphine has not completely resolved. Sepsis Criteria SIRS Criteria (2 or more): Heart rate over 90, WBC > 87486, < 4000 or > 10% bands Diagnosis Primary Impression: Abdominal pain Qualified Code: R10.30 - Lower abdominal pain Additional Impressions: Viral syndrome Hx of endometriosis Referrals: Primary Care Physician call for appointment Patient Instructions: General Instructions, Narcotic given in the ED Additional Instructions: Follow clear liquid diet for next 12-24 hours advance diet as tolerated to bland /Ruth diet then regular diet avoiding fried or fatty foods Recommend use of ibuprofen/Advil/Motrin per package directions for pain associated with inflammation May take 600 mg as often as every 6-8 hours as needed for pain associated with inflammation for fever 100.4F or greater Previously provided prescription for Zofran to be used as needed for nausea and/ or vomiting 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
[2016-07-26] MEDS ORDERED: SODIUM CHLOR 0.9% 1000 ML INJ 1,000 ML IV ONE (05:00)
[2016-07-26 05:18] VITALS: BP 105/56
[2016-07-26] MEDS ORDERED: ZOFR4TAB3 SL (15:34)
[2016-07-26] MEDS ORDERED: ULTR50TA5 PO (15:35)
[2016-07-26] MEDS ORDERED: NAPR500 PO (15:36)
== END 2016-07-26 05:21 | disposition home or self-care (01) ==
LOC: PHED 00:44
DX: R10.30 Lower abdominal pain, unspecified (principal); B34.9 Viral infection, unspecified; K21.9 Gastro-esophageal reflux disease without esophagitis; J45.909 Unspecified asthma, uncomplicated; F17.210 Nicotine dependence, cigarettes, uncomplicated
CPT/HCPCS: 74177; 80053; 81001; 83690; 85025; 96361; 96374; 96375; 99284; J1885; J2270; J2405; J7030; Q9967

== ENCOUNTER 2016-07-26 13:00 | Emergency (ER) | payer MEDICAID, OTHER ==
[~2016-07-26] VITALS: Ht 175.3 cm; Wt 70.0 kg
[2016-07-26 13:02] VITALS: BP 134/63; PULSE 94; RESP 16; TEMP 99.5; O2SAT 97
--- NOTE | 2016-07-26 13:15 | PD ---
HPI Chief Complaint: Flank/Kidney Pain Time Seen by Provider: 13:15 Travel History International Travel<30 days: No Contact w/Intl Traveler<30days: No Traveled to known affect area: No History of Present Illness HPI 36 year old presents to the ED for the third time in the last 24 hours for evaluation of pelvic pain. Patient has been having suprapubic and right lower abdominal pain over the last 2 days, worsening with associated nausea and vomiting. Patient was seen and evaluated yesterday and discharged home with Zofran. She was seen and evaluated this morning by Dr. Yuan. CT imaging was done and showed trace free fluid of the pelvis with no acute findings identified. Patient has subjective fever and chills. She is afebrile here. She states she's been taking the Zofran but it is not helping. States today she has had difficulty urinating and feels that she has to push in order to have a small amount of urine. Denies any hematuria. Patient states that she has had a hysterectomy but still has her cervix and does have her menstrual cycle at times. She is currently on this. Has not followed up with her [employer]ER[employer] SERVICE OFFICER. She has no other symptoms to report. PFSH Past Medical History Asthma: Yes (CHILDHOOD) Cancer: No Cardiovascular Problems: Yes (REPORTS HISTORY OF CHEST PAIN) Diabetes: No Diminished Hearing: No Endocrine: No Gastrointestinal Disorders: Yes (reflux) GERD: Yes Genitourinary: No Headaches: Yes Hepatitis: No Hiatal Hernia: No Hypertension: No Immune Disorder: No Musculoskeletal: Yes (spinal pain neck and back) Neurologic: Yes (headaches and migraines) Psychiatric: No Reproductive: Yes (HYST) Respiratory: No Immunizations Current: Yes Thyroid Disease: No Menopausal: No : 3 Para: 3 Miscarriage: 0 : 1 Ovarian Cysts: Yes Past Surgical History Abdominal Surgery: Yes (laproscopic surgery for endometriosis) AICD: No Genitourinary Surgery: Yes (ENDOMITRIOSIS) Gynecologic Surgery: Yes (laparoscopy) Hysterectomy: Yes (07/2015) Joint Replacement: No Pacemaker: No Other Surgery: Yes (LAPROSCOPY) Social History Alcohol Use: Yes (SOCIAL) Tobacco Use: Yes (1 PPD) Substance Use: No Allergies-Medications (Allergen,Severity, Reaction): Coded Allergies: Succinylcholine (Verified Allergy, Severe, maternal grandmother had hypertension and bronchospasms, 07/26/16) Tylenol (Verified Allergy, Severe, stomach pain, 07/26/16) Reported Meds & Prescriptions Reported Meds & Active Scripts Active Naprosyn (Naproxen) 500 Mg Tab 500 Mg PO BID PRN Ultram (Tramadol HCl) 50 Mg Tab 50 Mg PO Q6H PRN Zofran Odt (Ondansetron Odt) 4 Mg Tab 4 Mg SL Q6HR PRN Zofran Odt (Ondansetron Odt) 4 Mg Tab 4 Mg SL Q8HR PRN Review of Systems Except as stated in HPI: all other systems reviewed are Neg Physical Exam Narrative GENERAL: Well-nourished female patient, tearful but in no acute distress SKIN: Warm and dry. HEAD: Atraumatic. Normocephalic. EYES: Pupils equal and round. No scleral icterus. No injection or drainage. ENT: No nasal bleeding or discharge. Mucous membranes pink and moist. NECK: Trachea midline. No JVD. CARDIOVASCULAR: Regular rate and rhythm. No murmur appreciated. RESPIRATORY: No accessory muscle use. Clear to auscultation. Breath sounds equal bilaterally. GASTROINTESTINAL: Abdomen soft, nondistended. Suprapubic tenderness to palpation. Rebound tenderness. No guarding. Hepatic and splenic margins not palpable. GENITOURINARY: Normal external genitalia without lesions or erythema. Vaginal vault moderate amount of blood without drainage. Cervical os was closed without drainage. No cervical motion tenderness. Uterus nontender and nonenlarged. Bilateral adnexa nontender without masses. MUSCULOSKELETAL: No obvious deformities. No clubbing. No cyanosis. No edema. NEUROLOGICAL: Awake and alert. No obvious cranial nerve deficits. Motor grossly within normal limits. Normal speech. PSYCHIATRIC: Appropriate mood and affect; insight and judgment normal. Data Data Last Documented VS Vital Signs Date Time Temp Pulse Resp B/P Pulse Ox O2 Delivery O2 Flow Rate FiO2 07/26/16 16:13 86 18 130/62 98 07/26/16 13:02 99.5 Orders Basic Metabolic Panel (Bmp) (07/26/16 13:23) Complete Blood Count With Diff (07/26/16 13:23) Urinalysis - C+S If Indicated (07/26/16 13:23) Iv Access Insert/Monitor (07/26/16 13:23) Ecg Monitoring (07/26/16 13:23) Oximetry (07/26/16 13:23) Sodium Chlor 0.9% 1000 Ml Inj (Ns 1000 M (07/26/16 13:23) Sodium Chloride 0.9% Flush (Ns Flush) (07/26/16 13:30) Ketorolac Inj (Toradol Inj) (07/26/16 13:30) Ed Urine Pregnancytest Poc (07/26/16 13:23) Metoclopramide Inj (Reglan Inj) (07/26/16 13:30) Gc And Chlamydia Pcr (07/26/16 13:23) Wet Prep Profile (07/26/16 13:23) Us Pelvis Comp W Transvaginal (07/26/16 ) Labs Laboratory Tests Test 07/26/16 07/26/16 07/26/16 14:10 14:27 15:00 White Blood Count 2.2 TH/MM3 Red Blood Count 4.17 MIL/MM3 Hemoglobin 12.7 GM/DL Hematocrit 36.7 % Mean Corpuscular Volume 88.0 FL Mean Corpuscular Hemoglobin 30.4 PG Mean Corpuscular Hemoglobin 34.5 % Concent Red Cell Distribution Width 12.8 % Platelet Count 98 TH/MM3 Mean Platelet Volume 8.0 FL Neutrophils (%) (Auto) 65.4 % Lymphocytes (%) (Auto) 24.2 % Monocytes (%) (Auto) 8.7 % Eosinophils (%) (Auto) 0.3 % Basophils (%) (Auto) 1.4 % Neutrophils # (Auto) 1.4 TH/MM3 Lymphocytes # (Auto) 0.5 TH/MM3 Monocytes # (Auto) 0.2 TH/MM3 Eosinophils # (Auto) 0.0 TH/MM3 Basophils # (Auto) 0.0 TH/MM3 CBC Comment AUTO DIFF Differential Comment AUTO DIFF CONFIRMED Sodium Level 141 MEQ/L Potassium Level 3.6 MEQ/L Chloride Level 108 MEQ/L Carbon Dioxide Level 26.4 MEQ/L Anion Gap 7 MEQ/L Blood Urea Nitrogen 4 MG/DL Creatinine 0.62 MG/DL Estimat Glomerular Filtration 110 ML/MIN Rate Random Glucose 78 MG/DL Calcium Level 7.7 MG/DL Clue Cells (Wet Prep) NONE SEEN Vaginal Trichomonas (Wet Prep) NONE SEEN Vaginal Yeast (Wet Prep) NONE SEEN Urine Color LIGHT-YELLOW Urine Turbidity CLEAR Urine pH 7.0 Urine Specific [place] 1.008 Urine Protein NEG mg/dL Urine Glucose (UA) NEG mg/dL Urine Ketones NEG mg/dL Urine Occult Blood SMALL Urine Nitrite NEG Urine Bilirubin NEG Urine Urobilinogen LESS THAN 2.0 MG/DL Urine Leukocyte Esterase NEG Urine RBC LESS THAN 1 /hpf Urine WBC LESS THAN 1 /hpf Urine Squamous Epithelial 1 /hpf Cells Urine Mucus FEW /lpf Microscopic Urinalysis Comment CULT NOT INDICATED MDM Medical Decision Making Medical Screen Exam Complete: Yes Emergency Medical Condition: Yes Medical Record Reviewed: Yes Differential Diagnosis UTI versus STD versus ovarian cyst versus colitis Narrative Course 36 year-old female presents to emergency department for evaluation of persistent pelvic pain. Patient appears without distress. She is tearful. She has a suprapubic and right lower quadrant tenderness to palpation. I discussed the patient with my attending physician Dr. Sullivan to recommend moving forward with an ultrasound. Repeat lab work is without any acute concern. Last Impressions Pelvis Ultrasound 07/26/16 0000 Signed Impressions: Service Date/Time: Tuesday, July 26, 2016 13:37 - CONCLUSION: 1. Status post hysterectomy. 2. Bilateral small ovarian follicular cysts. 3. Free fluid in the cul-de-sac which is a nonspecific finding but could be secondary to recent cyst rupture. Fran Chris MD Laboratory Tests Test 07/26/16 07/26/16 07/26/16 14:10 14:27 15:00 White Blood Count 2.2 TH/MM3 Red Blood Count 4.17 MIL/MM3 Hemoglobin 12.7 GM/DL Hematocrit 36.7 % Mean Corpuscular Volume 88.0 FL Mean Corpuscular Hemoglobin 30.4 PG Mean Corpuscular Hemoglobin 34.5 % Concent Red Cell Distribution Width 12.8 % Platelet Count 98 TH/MM3 Mean Platelet Volume 8.0 FL Neutrophils (%) (Auto) 65.4 % Lymphocytes (%) (Auto) 24.2 % Monocytes (%) (Auto) 8.7 % Eosinophils (%) (Auto) 0.3 % Basophils (%) (Auto) 1.4 % Neutrophils # (Auto) 1.4 TH/MM3 Lymphocytes # (Auto) 0.5 TH/MM3 Monocytes # (Auto) 0.2 TH/MM3 Eosinophils # (Auto) 0.0 TH/MM3 Basophils # (Auto) 0.0 TH/MM3 CBC Comment AUTO DIFF Differential Comment AUTO DIFF CONFIRMED Sodium Level 141 MEQ/L Potassium Level 3.6 MEQ/L Chloride Level 108 MEQ/L Carbon Dioxide Level 26.4 MEQ/L Anion Gap 7 MEQ/L Blood Urea Nitrogen 4 MG/DL Creatinine 0.62 MG/DL Estimat Glomerular Filtration 110 ML/MIN Rate Random Glucose 78 MG/DL Calcium Level 7.7 MG/DL Clue Cells (Wet Prep) NONE SEEN Vaginal Trichomonas (Wet Prep) NONE SEEN Vaginal Yeast (Wet Prep) NONE SEEN Urine Color LIGHT-YELLOW Urine Turbidity CLEAR Urine pH 7.0 Urine Specific [place] 1.008 Urine Protein NEG mg/dL Urine Glucose (UA) NEG mg/dL Urine Ketones NEG mg/dL Urine Occult Blood SMALL Urine Nitrite NEG Urine Bilirubin NEG Urine Urobilinogen LESS THAN 2.0 MG/DL Urine Leukocyte Esterase NEG Urine RBC LESS THAN 1 /hpf Urine WBC LESS THAN 1 /hpf Urine Squamous Epithelial 1 /hpf Cells Urine Mucus FEW /lpf Microscopic Urinalysis Comment CULT NOT INDICATED Findings are discussed with the patient. She is advised to follow-up with her RESIDENCE DIRECTOR and primary care provider. She agrees to return immediately with any acute worsening of symptoms. Diagnosis Primary Impression: Abdominal pain Qualified Code: R10.30 - Lower abdominal pain Additional Impressions: Nausea Pelvic pain in female Referrals: [facility] Primary Care Physician Patient Instructions: General Instructions, Ovarian Cyst (ED) Additional Instructions: Follow-up with a railroad engineer Return immediately to the emergency department with any acute worsening of symptoms Med/Other Pt SpecificInfo: Prescription(s) given Scripts Naproxen (Naprosyn)500 Mg [id number] Mg PO BID PRN (PAIN SCALE 1 TO 10) #30 TAB Ref 0 Prov:Ana Fox 07/26/16 Tramadol (Ultram)50 Mg Tab50 Mg PO Q6H PRN (PAIN GREATER THAN 6) #20 TAB Ref 0 Prov:Erik Sullivan MD 07/26/16 Ondansetron Odt (Zofran Odt)4 Mg Tab4 Mg SL Q6HR PRN (Nausea/Vomiting) #10 TAB Ref 0 Prov:Ana Fox 07/26/16 Disposition: 01 DISCHARGE HOME Condition: Stable Ana Fox Jul 26, 2016 13:15
[2016-07-26] MEDS ORDERED: SODIUM CHLOR 0.9% 1000 ML INJ 1,000 ML IV SCH (13:23)
[2016-07-26] MEDS ORDERED: KETOROLAC TROMETHAMINE 30 MG/ML (IVP) VIAL IVP ONE (13:30)
[2016-07-26] MEDS ORDERED: SODIUM CHLORIDE 0.9% FLUSH 5 ML FLUSH IVF PRN (13:30)
[2016-07-26] MEDS ORDERED: METOCLOPRAMIDE HCL 10 MG/2 ML VIAL IV PUSH ONE (13:30)
--- NOTE | 2016-07-26 14:24 | RADRPT ---
EXAM DATE/TIME: 07/26/2016 13:37 [facility] COMPARISON: No previous studies available for comparison. INDICATIONS : Right pelvic pain. MEDICAL HISTORY : Gastroesophageal reflux disease. Endometriosis. SURGICAL HISTORY : Hysterectomy. Laproscopy. ENCOUNTER: Initial ACUITY: 2 days PAIN SCORE: 8/10 LOCATION: Bilateral pelvis MEASUREMENTS: UTERUS: Surgically absent ENDOMETRIAL STRIPE: RIGHT OVARY: 2.6 x 2.3 x 2.8 cm LEFT OVARY: 2.9 x 2.1 x 2.9 cm cm FINDINGS: UTERUS: Status post hysterectomy. RIGHT OVARY: Ovary contains no mass or significant cystic lesion. LEFT OVARY: Ovary contains no mass or significant cystic lesion. MISCELLANEOUS: Free fluid in the cul-de-sac. CONCLUSION: 1. Status post hysterectomy. 2. Bilateral small ovarian follicular cysts. 3. Free fluid in the cul-de-sac which is a nonspecific finding but could be secondary to recent cyst rupture. Fran Chris MD on July 26, 2016 at 14:19 Board Certified Radiologist. This report was verified electronically.
[2016-07-26 14:46] LABS: AUTOMATED NEUTROPHIL # 1.4 TH/MM3 (1.8-7.7); BASOPHIL % 1.4 % (0.0-2.0); EOSINOPHIL % 0.3 % (0.0-4.0); HEMATOCRIT 36.7 % (35.0-46.0); LYMPH % 24.2 % (9.0-44.0); LYMPHOCYTE # 0.5 TH/MM3 (1.0-4.8); MEAN CORPUSCULAR HEMOGLOBIN 30.4 PG (27.0-34.0); MEAN CORPUSCULAR HGB CONC 34.5 % (32.0-36.0); MONO % 8.7 % (0.0-8.0); NEUT % 65.4 % (16.0-70.0); PLATELET COUNT 98 TH/MM3 (150-450); RED BLOOD COUNT 4.17 MIL/MM3 (4.00-5.30); RED CELL DISTRIBUTION WIDTH 12.8 % (11.6-17.2); WHITE BLOOD COUNT 2.2 TH/MM3 (4.0-11.0)
[2016-07-26 14:49] LABS: HEMO FLAGS AUTO DIFF
[2016-07-26 15:10] LABS: BICARBONATE 26.4 MEQ/L (21.0-32.0); POTASSIUM 3.6 MEQ/L (3.5-5.1)
[2016-07-26 15:20] LABS: BLOOD, URINE SMALL (NEG); COMMENT (UR) CULT NOT INDICATED; CULTURE IF INDICATED CULT NOT INDICATED; GLUCOSE,URINE NEG (NEG); KETONE, URINE NEG (NEG); MUCUS URINE FEW /lpf (OCC); NITRITE,URINE NEG (NEG); SQUAMOUS EPITHELIAL CELL URINE 1 /hpf (0-5); URINE COLOR LIGHT-YELLOW (YELLW/STRAW)
[2016-07-26 15:20] LABS: SCAN/DIFF AUTO DIFF CONFIRMED
[2016-07-26] MEDS ORDERED: ZOFR4TAB3 SL (15:34)
[2016-07-26] MEDS ORDERED: ULTR50TA5 PO (15:35)
[2016-07-26] MEDS ORDERED: NAPR500 PO (15:36)
[2016-07-26 16:13] VITALS: BP 130/62
== END 2016-07-26 16:48 | disposition home or self-care (01) ==
LOC: NEPE 13:00
DX: R10.2 Pelvic and perineal pain (principal); R11.2 Nausea with vomiting, unspecified
CPT/HCPCS: 76830; 76856; 80048; 81001; 85025; 87210; 96361; 96374; 96375; 99284; J1885; J2765; J7030; 87491; 87591

== ENCOUNTER 2016-10-20 10:28 | Emergency (ER) | payer MEDICAID ==
[~2016-10-20] VITALS: Ht 172.7 cm; Wt 71.5 kg
[~2016-10-20 10:28] MED LIST changes: +NAPR500 PO; +ULTR50TA5 PO
[2016-10-20 10:35] VITALS: BP 118/71; PULSE 82; RESP 16; TEMP 98.8; O2SAT 99
[2016-10-20] MEDS ORDERED: AUGM875T3 PO (11:44)
--- NOTE | 2016-10-20 11:44 | PD ---
HPI Chief Complaint: ENT Complaint Time Seen by Provider: 11:39 Travel History International Travel<30 days: No Contact w/Intl Traveler<30days: No Traveled to known affect area: No History of Present Illness HPI 36-year-old female here with complaint of ear pain. Patient states that she had pain in the left ear approximately one week ago, the sense resolved in the interim and she has not been having pain in the right ear. Notes a pressure and dullness in the hearing. No fevers or chills. She's Notes a lymph node that swollen inferior to the right ear that gives her some pain with range of motio of the neck n and swallowing. PFSH Past Medical History Asthma: Yes (CHILDHOOD) Cancer: No Cardiovascular Problems: Yes (REPORTS HISTORY OF CHEST PAIN) Diabetes: No Diminished Hearing: No Endocrine: No Gastrointestinal Disorders: Yes (reflux) GERD: Yes Genitourinary: No Headaches: Yes Hepatitis: No Hiatal Hernia: No Hypertension: No Immune Disorder: No Medical other: Yes (LEUKOPENIA) Musculoskeletal: Yes (spinal pain neck and back) Neurologic: Yes (headaches and migraines) Psychiatric: No Reproductive: Yes (HYST) Respiratory: No Immunizations Current: Yes Thyroid Disease: No Influenza Vaccination: No ?: Not Menopausal: No : 4 Para: 3 Miscarriage: 0 : 1 Ovarian Cysts: Yes Past Surgical History Abdominal Surgery: Yes (laproscopic surgery for endometriosis) AICD: No Genitourinary Surgery: Yes (ENDOMITRIOSIS) Gynecologic Surgery: Yes (laparoscopy) Hysterectomy: Yes Joint Replacement: No Pacemaker: No Other Surgery: Yes (LAPROSCOPY) Family History Family Myocardial Infarction: Yes (FATHER) Social History Alcohol Use: Yes (SOCIAL) Tobacco Use: Yes (1 PPD) Substance Use: No Allergies-Medications (Allergen,Severity, Reaction): Coded Allergies: Succinylcholine (Verified Allergy, Severe, maternal grandmother had hypertension and bronchospasms, 10/20/16) Tylenol (Verified Allergy, Severe, stomach pain, 10/20/16) Reported Meds & Prescriptions Reported Meds & Active Scripts Active Augmentin (Amoxicillin-Clavulanate) 875-125 Mg Tab 1 Tab PO BID 7 Days Review of Systems Except as stated in HPI: all other systems reviewed are Neg Physical Exam Narrative GENERAL: Well-appearing female in no acute distress SKIN: Focused skin assessment warm/dry. HEAD: Normocephalic. EYES: No scleral icterus. No injection or drainage. ENT: No nasal bleeding or discharge. Mucous membranes pink and moist. Left TM is clear. Right TM is dull, erythematous. No mastoid tenderness NECK: Supple. Right lymphadenopathy inferior to the ear. CARDIOVASCULAR: Regular rate and rhythm. RESPIRATORY: No accessory muscle use. MUSCULOSKELETAL: Moves all extremities normally NEUROLOGICAL: Awake and alert. Normal speech. PSYCHIATRIC: Appropriate mood and affect; insight and judgment normal. Data Data Last Documented VS Vital Signs Date Time Temp Pulse Resp B/P Pulse Ox O2 Delivery O2 Flow Rate FiO2 10/20/16 10:35 98.8 82 16 118/71 99 MDM Medical Decision Making Medical Screen Exam Complete: Yes Emergency Medical Condition: Yes Medical Record Reviewed: Yes Differential Diagnosis 36-year-old female here with ear pain. Right ear is consistent with otitis media. No evidence of otitis externa, mastoiditis Narrative Course Antibiotics for home Diagnosis Primary Impression: Otitis media Qualified Code: H66.001 - Acute suppurative otitis media of right ear without spontaneous rupture of tympanic membrane, recurrence not specified Referrals: [facility] as needed Additional Instructions: Antibiotics as prescribed. Follow-up to establish care with primary care provider. Med/Other Pt SpecificInfo: Prescription(s) given Scripts Amoxicillin-Clavulanate (Augmentin)875-125 Mg Tab1 Tab PO BID 7 Days Ref 0 Prov:Kailyn Solares MD 10/20/16 Disposition: 01 DISCHARGE HOME Condition: Stable Kailyn Solares MD Oct 20, 2016 11:44
== END 2016-10-20 11:48 | disposition home or self-care (01) ==
LOC: PHEFT 10:28
DX: H66.001 Acute suppurative otitis media without spontaneous rupture of ear drum, right ear (principal); J45.909 Unspecified asthma, uncomplicated; K21.9 Gastro-esophageal reflux disease without esophagitis; F17.210 Nicotine dependence, cigarettes, uncomplicated
CPT/HCPCS: 99283

== ENCOUNTER 2016-10-30 23:06 | Emergency (ER) | payer MEDICAID ==
[~2016-10-30] VITALS: Ht 172.7 cm; Wt 72.3 kg
[~2016-10-30 23:06] MED LIST changes: +AUGM875T3 PO; -NAPR500 PO; -ULTR50TA5 PO; -ZOFR4TAB3 SL
[2016-10-30 23:17] VITALS: BP 119/70; PULSE 86; RESP 18; TEMP 98.5; O2SAT 97
[2016-10-30] MEDS ORDERED: BACT800T5 PO (23:41)
[2016-10-30] MEDS ORDERED: OXYC1CAP PO (23:41)
--- NOTE | 2016-10-30 23:42 | PD ---
HPI Chief Complaint: ENT Complaint Time Seen by Provider: 23:22 Travel History International Travel<30 days: No Contact w/Intl Traveler<30days: No Traveled to known affect area: No History of Present Illness HPI This 36-year-old female is complaining of pain in her right ear. She was seen here for this pain about 2 weeks ago. She was diagnosed with an ear infection and was put on Augmentin. She says it seemed to get better she finished the antibiotic. However the pain came back today she is also having some pain in her neck and greater on the right side. She has not been swimming. She had been swimming prior to the original infection. She has a history of leukopenia PFSH Past Medical History Asthma: Yes (CHILDHOOD) Cancer: No Cardiovascular Problems: Yes (REPORTS HISTORY OF CHEST PAIN) Diabetes: No Diminished Hearing: No Endocrine: No Gastrointestinal Disorders: Yes (reflux) GERD: Yes Genitourinary: No Headaches: Yes Hepatitis: No Hiatal Hernia: No Hypertension: No Immune Disorder: No Musculoskeletal: Yes (spinal pain neck and back) Neurologic: Yes (headaches and migraines) Psychiatric: No Reproductive: Yes (HYST) Respiratory: No Immunizations Current: Yes Thyroid Disease: No ?: Not Menopausal: No : 4 Para: 3 Miscarriage: 0 : 1 Ovarian Cysts: Yes Past Surgical History Abdominal Surgery: Yes (laproscopic surgery for endometriosis) AICD: No Genitourinary Surgery: Yes (ENDOMITRIOSIS) Gynecologic Surgery: Yes (laparoscopy) Hysterectomy: Yes Joint Replacement: No Pacemaker: No Other Surgery: Yes (LAPROSCOPY) Social History Alcohol Use: Yes (SOCIAL) Tobacco Use: Yes (1 PPD) Substance Use: No Allergies-Medications (Allergen,Severity, Reaction): Coded Allergies: Succinylcholine (Verified Allergy, Severe, maternal grandmother had hypertension and bronchospasms, 10/20/16) Tylenol (Verified Allergy, Severe, stomach pain, 10/20/16) Reported Meds & Prescriptions Reported Meds & Active Scripts Active Review of Systems General / Constitutional: No: Fever, Chills Eyes: No: Diploplia HENT: Positive: Earache Cardiovascular: No: Chest Pain or Discomfort, Palpitations Respiratory: No: Cough, Shortness of Breath Gastrointestinal: No: Nausea Genitourinary: No: Urgency, Frequency Physical Exam Narrative GENERAL: Well-developed female SKIN: Focused skin assessment warm/dry. HEAD: Atraumatic. Normocephalic. EYES: Pupils equal and round. No scleral icterus. No injection or drainage. ENT: No nasal bleeding or discharge. Mucous membranes pink and moist. Right TM is erythematous and bulging. There is some exudate present in the ear canal suggestive of otitis externa Left TM is somewhat retracted. No stridor pharynx is negative. There are some shoddy bilateral anterior cervical nodes NECK: Trachea midline. No JVD. CARDIOVASCULAR: Regular rate and rhythm. No murmur appreciated. RESPIRATORY: No accessory muscle use. Clear to auscultation. Breath sounds equal bilaterally. GASTROINTESTINAL: Abdomen soft, non-tender, nondistended. Hepatic and splenic margins not palpable. MUSCULOSKELETAL: No obvious deformities. No clubbing. No cyanosis. No edema. NEUROLOGICAL: Awake and alert. No obvious cranial nerve deficits. Motor grossly within normal limits. Normal speech. PSYCHIATRIC: Appropriate mood and affect; insight and judgment normal. Data Data Last Documented VS Vital Signs Date Time Temp Pulse Resp B/P Pulse Ox O2 Delivery O2 Flow Rate FiO2 10/30/16 23:17 98.5 86 18 119/70 97 MDM Medical Decision Making Medical Screen Exam Complete: Yes Emergency Medical Condition: Yes Medical Record Reviewed: Yes Differential Diagnosis Differential includes URI, right otitis externa, right otitis media Narrative Course Patient has features of both externa and media and will be treated with oral antibiotics and drops. She has taken Motrin for pain without relief and given some pain medication to use at home Diagnosis Primary Impression: Otitis media Qualified Code: H66.004 - Recurrent acute suppurative otitis media of right ear without spontaneous rupture of tympanic membrane Scripts Oxycodone 5 Mg Cap5 Mg PO Q4H PRN (PAIN) #12 CAP Ref 0 Prov:Mati Salazar MD 10/30/16 Sulfamethoxazole-Trimethoprim (Bactrim DS)800-160 Mg Tab1 Tab PO BID 10 Days Ref 0 Prov:Mati Salazar MD 10/30/16 Disposition: 01 DISCHARGE HOME Condition: Stable Mati Salazar MD Oct 30, 2016 23:42
[2016-10-30] MEDS ORDERED: CIPRHC10A RIGHT EAR (23:44)
[2016-10-30] MEDS ORDERED: SULFAMETHOXAZOLE-TRIMETHOPRIM DS 800-160 MG TAB PO ONE (23:45)
[2016-10-31] MEDS ORDERED: OXYC-392 PO (15:48)
== END 2016-10-31 00:04 | disposition home or self-care (01) ==
LOC: PHED 23:06
DX: H66.004 Acute suppurative otitis media without spontaneous rupture of ear drum, recurrent, right ear (principal)
CPT/HCPCS: 99284

== ENCOUNTER 2016-11-03 20:04 | Emergency (ER) | payer MEDICAID ==
[~2016-11-03] VITALS: Ht 172.7 cm; Wt 71.0 kg
[~2016-11-03 20:04] MED LIST changes: -AUGM875T3 PO; +BACT800T5 PO; +CIPRHC10A RIGHT EAR; +OXYC-392 PO; +OXYC1CAP PO
[2016-11-03 20:07] VITALS: BP 106/67; PULSE 80; RESP 18; TEMP 98.3; O2SAT 100
--- NOTE | 2016-11-03 20:44 | PD ---
HPI Chief Complaint: ENT Complaint Time Seen by Provider: 20:35 Travel History International Travel<30 days: No Contact w/Intl Traveler<30days: No Traveled to known affect area: No History of Present Illness HPI 36-year-old female presents emergency department for evaluation of ear pain for 2 weeks. She's been treated on 2 different ER occasions for acute otitis media and more recently otitis externa. Patient was unable to fill the prescription for ciprofloxacin otic due to being uninsured. She denies fever or chills. She reports the pain is constant, nonradiating severity 5 out of 10. No aggravating or alleviating factors. PFSH Past Medical History Asthma: Yes (As child ) Cancer: No Cardiovascular Problems: Yes (H/O irr. HR) Chest Pain: Yes Diabetes: No Diminished Hearing: No Endocrine: No Gastrointestinal Disorders: Yes (reflux) GERD: Yes Genitourinary: No Headaches: Yes Hepatitis: No Hiatal Hernia: No Hypertension: No Immune Disorder: No Medical other: Yes (Leukopenia ) Musculoskeletal: Yes (Chronic neck and back pain) Neurologic: Yes (Headaches, migraines) Psychiatric: No Reproductive: Yes (Endometriosis ) Respiratory: No Immunizations Current: Yes Thyroid Disease: No Tetanus Vaccination: > 5 Years Influenza Vaccination: No ?: Not Menopausal: No : 4 Para: 3 Miscarriage: 0 : 1 Ovarian Cysts: Yes Past Surgical History Abdominal Surgery: Yes (Laproscopic surgery for endometriosis) AICD: No Genitourinary Surgery: Yes (ENDOMITRIOSIS) Gynecologic Surgery: Yes (laparoscopy) Hysterectomy: Yes Joint Replacement: No Pacemaker: No Other Surgery: Yes (LAPROSCOPY) Family History Family Myocardial Infarction: Yes (Father) Social History Alcohol Use: No Tobacco Use: Yes (1 PPD) Substance Use: No Allergies-Medications (Allergen,Severity, Reaction): Coded Allergies: Succinylcholine (Verified Allergy, Severe, maternal grandmother had hypertension and bronchospasms, 11/03/16) Tylenol (Verified Allergy, Severe, stomach pain, 11/03/16) Reported Meds & Prescriptions Reported Meds & Active Scripts Active Bactrim DS (Sulfamethoxazole-Trimethoprim) 800-160 Mg Tab 1 Tab PO BID 10 Days Review of Systems Except as stated in HPI: all other systems reviewed are Neg Physical Exam Narrative GENERAL: Well-nourished, well-developed patient. SKIN: Focused skin assessment warm/dry. HEAD: Normocephalic. EYES: No scleral icterus. No injection or drainage. EAR: Right canal swelling with yellowish exudate up securing the TM. No mastoid tenderness. Hearing grossly intact. NECK: Supple, trachea midline. No JVD or lymphadenopathy. CARDIOVASCULAR: Regular rate and rhythm without murmurs, gallops, or rubs. RESPIRATORY: Breath sounds equal bilaterally. No accessory muscle use. GASTROINTESTINAL: Abdomen soft, non-tender, nondistended. MUSCULOSKELETAL: No cyanosis, or edema. BACK: Nontender without obvious deformity. No CVA tenderness. Data Data Last Documented VS Orders Ciprofloxacin-Hc Otic Soln (Cipro-Hc Kristy (11/03/16 21:00) MDM Medical Decision Making Medical Screen Exam Complete: Yes Emergency Medical Condition: Yes Differential Diagnosis Otitis media, otitis externa, Narrative Course 36-year-old female presents emergency department for evaluation of ear pain for 2 weeks. She's been treated on 2 different ER occasions for acute otitis media and more recently otitis externa. Patient was unable to fill the prescription for ciprofloxacin otic due to being uninsured. On exam patient has right mild right TM erythema and yellowish exudate within the canal. She has no mastoid tenderness. No lymphadenopathy. Patient will be given Cipro eardrops here in emergency room and instructed to follow up with the [facility]. Diagnosis Primary Impression: Otitis externa Qualified Code: H60.501 - Acute otitis externa of right ear, unspecified type Referrals: [facility] Disposition: 01 DISCHARGE HOME Condition: Stable Karen Farias Nov 03, 2016 20:44
[2016-11-03] MEDS ORDERED: CIPROFLOXACIN/HYDROCORTISONE OTIC 10 ML BTL RIGHT EAR ONE (21:00)
== END 2016-11-03 21:10 | disposition home or self-care (01) ==
LOC: PHEFT 20:04
DX: H60.501 Unspecified acute noninfective otitis externa, right ear (principal)
CPT/HCPCS: 99283

== ENCOUNTER 2017-01-20 15:41 | Emergency (ER) | payer SELFPAY ==
[~2017-01-20] VITALS: Ht 172.7 cm; Wt 73.4 kg
[~2017-01-20 15:41] MED LIST changes: -CIPRHC10A RIGHT EAR; -OXYC-392 PO; -OXYC1CAP PO
[2017-01-20 15:55] VITALS: BP 126/66; PULSE 76; RESP 20; TEMP 99.3; O2SAT 76; O2SAT 99
[2017-01-20] MEDS ORDERED: ONDANSETRON HCL 4 MG/2 ML VIAL IV PUSH ONE (17:45)
[2017-01-20] MEDS ORDERED: MORPHINE SULFATE 4 MG/ML INJ IV PUSH ONE (17:45)
[2017-01-20] MEDS ORDERED: CLINDAMYCIN INJ 600 MG in SODIUM CHLORIDE 0.9% INJ 100 ML IV ONE (17:45)
[2017-01-20] MEDS ORDERED: SODIUM CHLOR 0.9% 1000 ML INJ 1,000 ML IV ONE (17:45)
--- NOTE | 2017-01-20 18:02 | PD ---
HPI Chief Complaint: Facial Pain or Swelling Time Seen by Provider: 17:29 Travel History International Travel<30 days: No Contact w/Intl Traveler<30days: No Traveled to known affect area: No History of Present Illness HPI The patient is a 37-year-old female who presents to the emergency department for left eye pain and swelling. The patient is a 1-2 day history of left upper eyelid swelling, now notes swelling below the left eye. The patient has a previous history of preseptal cellulitis which was treated with 2 antibiotics with good resolution. The patient now complains of pain with extraocular eye movements, denies any diplopia or blurry vision. She does complain of slight left-sided headache after the swelling started. The patient denies any photophobia or eye drainage. She does note subjective fevers without chills or sweats. Symptoms are moderate, there are no current alleviating or exacerbating factors. The patient denies any history of chronic MRSA infections, diabetes, or previous IV drug use. PFSH Past Medical History Asthma: Yes (As child ) Cancer: No Cardiovascular Problems: Yes (H/O irr. HR) Chest Pain: Yes Diabetes: No Diminished Hearing: No Endocrine: No Gastrointestinal Disorders: Yes (reflux) GERD: Yes Genitourinary: No Headaches: Yes Hepatitis: No Hiatal Hernia: No Hypertension: No Immune Disorder: No Musculoskeletal: Yes (Chronic neck and back pain) Neurologic: Yes (Headaches, migraines) Psychiatric: No Reproductive: Yes (Endometriosis ) Respiratory: No Immunizations Current: Yes Thyroid Disease: No ?: Not Menopausal: No : 4 Para: 3 Miscarriage: 0 : 1 Ovarian Cysts: Yes Past Surgical History Abdominal Surgery: Yes (Laproscopic surgery for endometriosis) AICD: No Genitourinary Surgery: Yes (ENDOMITRIOSIS) Gynecologic Surgery: Yes (laparoscopy) Hysterectomy: Yes Joint Replacement: No Pacemaker: No Other Surgery: Yes (LAPROSCOPY) Family History Family Myocardial Infarction: Yes (FATHER) Social History Alcohol Use: No Tobacco Use: Yes (1 PPD) Substance Use: No Allergies-Medications (Allergen,Severity, Reaction): Coded Allergies: acetaminophen (Unverified Allergy, Severe, stomach pain, 01/20/17) succinylcholine (Unverified Allergy, Severe, maternal grandmother had hypertension and bronchospasms, 01/20/17) Reported Meds & Prescriptions Reported Meds & Active Scripts Active No Active Prescriptions or Reported Medications Review of Systems Except as stated in HPI: all other systems reviewed are Neg General / Constitutional: No: Fever, Chills Eyes: Positive: Other (pain with extraocular movements), No: Foreign Body Sensation, Pain HENT: Positive: Headaches (left-sided headache), No: Sore Throat, Neck Pain Cardiovascular: No: Chest Pain or Discomfort Respiratory: No: Shortness of Breath Gastrointestinal: No: Nausea, Vomiting, Abdominal Pain Skin: No Rash Neurologic: No: Focal Abnormalities Physical Exam Narrative GENERAL: Include: Alert, nontoxic-appearing 37-year-old female who appears her stated age and is in no acute respiratory distress. SKIN: Focused skin assessment warm/dry. HEAD: Mild edema above the left I accompanied the left eyelid that travels down over the left maxilla with a superficial abrasion noted. EYES: Pupils equal and round. Pupils are 4 mm bilateral and reactive. Extraocular muscles are intact, patient is able to see fingers at a distance of 2 feet without difficulty. ENT: No nasal bleeding or discharge. Mucous membranes pink and moist. Tenderness over the left frontal sinus and left maxillary sinus. Upper dentures in place. NECK: Trachea midline. No JVD. No significant anterior cervical lymphadenopathy noted. CARDIOVASCULAR: Regular rate and rhythm. No murmur appreciated. RESPIRATORY: No accessory muscle use. Clear to auscultation. Breath sounds equal bilaterally. GASTROINTESTINAL: Abdomen soft, non-tender, nondistended. No rebound tenderness. MUSCULOSKELETAL: No obvious deformities. No clubbing. No cyanosis. No edema. NEUROLOGICAL: Awake and alert. No obvious cranial nerve deficits. Motor grossly within normal limits. Normal speech. PSYCHIATRIC: Appropriate mood and affect; insight and judgment normal. Data Data Last Documented VS Vital Signs Date Time Temp Pulse Resp B/P (MAP) Pulse Ox O2 Delivery O2 Flow Rate FiO2 01/20/17 18:30 66 18 141/48 (79) 94 Nasal Cannula 2.00 01/20/17 15:55 99.3 Orders Orders Complete Blood Count With Diff (01/20/17 17:35) Comprehensive Metabolic Panel (01/20/17 17:35) Blood Culture (01/20/17 17:35) Lactic Acid (01/20/17 17:35) Ct Facial Bones W Iv Contrast (01/20/17 ) Clindamycin Inj (Cleocin Inj) (01/20/17 17:45) Sodium Chlor 0.9% 1000 Ml Inj (Ns 1000 M (01/20/17 17:45) Morphine Inj (Morphine Inj) (01/20/17 17:45) Ondansetron Inj (Zofran Inj) (01/20/17 17:45) Iohexol 350 Inj (Omnipaque 350 Inj) (01/20/17 18:28) Labs Laboratory Tests Test 01/20/17 17:50 White Blood Count 6.3 TH/MM3 Red Blood Count 4.29 MIL/MM3 Hemoglobin 13.4 GM/DL Hematocrit 39.3 % Mean Corpuscular Volume 91.6 FL Mean Corpuscular Hemoglobin 31.3 PG Mean Corpuscular Hemoglobin Concent 34.2 % Red Cell Distribution Width 12.1 % Platelet Count 228 TH/MM3 Mean Platelet Volume 8.0 FL Neutrophils (%) (Auto) 53.2 % Lymphocytes (%) (Auto) 33.5 % Monocytes (%) (Auto) 10.3 % Eosinophils (%) (Auto) 2.0 % Basophils (%) (Auto) 1.0 % Neutrophils # (Auto) 3.4 TH/MM3 Lymphocytes # (Auto) 2.1 TH/MM3 Monocytes # (Auto) 0.6 TH/MM3 Eosinophils # (Auto) 0.1 TH/MM3 Basophils # (Auto) 0.1 TH/MM3 CBC Comment DIFF FINAL Differential Comment Blood Urea Nitrogen 9 MG/DL Creatinine 0.71 MG/DL Random Glucose 93 MG/DL Total Protein 6.7 GM/DL Albumin 3.8 GM/DL Calcium Level 8.1 MG/DL Alkaline Phosphatase 43 U/L Aspartate Amino Transf (AST/SGOT) 13 U/L Alanine Aminotransferase (ALT/SGPT) 14 U/L Total Bilirubin 0.5 MG/DL Sodium Level 141 MEQ/L Potassium Level 3.4 MEQ/L Chloride Level 108 MEQ/L Carbon Dioxide Level 26.9 MEQ/L Anion Gap 6 MEQ/L Estimat Glomerular Filtration Rate 93 ML/MIN Lactic Acid Level 0.7 mmol/L MDM Medical Decision Making Medical Screen Exam Complete: Yes Emergency Medical Condition: Yes Medical Record Reviewed: Yes Interpretation(s) CT of the facial bones with contrast reveals negative CT of the face. No fluid collections or demonstrated. Sinuses are clear. Soft tissues within normal limits, including the post septal soft tissues of both orbits. Laboratory Tests Test 01/20/17 17:50 White Blood Count 6.3 TH/MM3 Red Blood Count 4.29 MIL/MM3 Hemoglobin 13.4 GM/DL Hematocrit 39.3 % Mean Corpuscular Volume 91.6 FL Mean Corpuscular Hemoglobin 31.3 PG Mean Corpuscular Hemoglobin Concent 34.2 % Red Cell Distribution Width 12.1 % Platelet Count 228 TH/MM3 Mean Platelet Volume 8.0 FL Neutrophils (%) (Auto) 53.2 % Lymphocytes (%) (Auto) 33.5 % Monocytes (%) (Auto) 10.3 % Eosinophils (%) (Auto) 2.0 % Basophils (%) (Auto) 1.0 % Neutrophils # (Auto) 3.4 TH/MM3 Lymphocytes # (Auto) 2.1 TH/MM3 Monocytes # (Auto) 0.6 TH/MM3 Eosinophils # (Auto) 0.1 TH/MM3 Basophils # (Auto) 0.1 TH/MM3 CBC Comment DIFF FINAL Differential Comment Blood Urea Nitrogen 9 MG/DL Creatinine 0.71 MG/DL Random Glucose 93 MG/DL Total Protein 6.7 GM/DL Albumin 3.8 GM/DL Calcium Level 8.1 MG/DL Alkaline Phosphatase 43 U/L Aspartate Amino Transf (AST/SGOT) 13 U/L Alanine Aminotransferase (ALT/SGPT) 14 U/L Total Bilirubin 0.5 MG/DL Sodium Level 141 MEQ/L Potassium Level 3.4 MEQ/L Chloride Level 108 MEQ/L Carbon Dioxide Level 26.9 MEQ/L Anion Gap 6 MEQ/L Estimat Glomerular Filtration Rate 93 ML/MIN Lactic Acid Level 0.7 mmol/L Differential Diagnosis differential diagnosis includes preseptal cellulitis, post-septal cellulitis, sinusitis, abscess, facial cellulitis, dental abscess. Narrative Course IV was established, labs were drawn and sent, and the patient was placed on cardiac telemetry monitoring and continuous pulse oximetry monitoring. The patient was administered clindamycin, morphine, Zofran, and IV fluids. Blood cultures and lactic acid were sent to lab. Labs are unremarkable. CT of facial bones is negative. Post septal cellulitis. The patient will be discharged home on antibiotics, nonsteroidal anti-inflammatories, is advised to follow-up with her primary physician. She is advised to return if symptoms worsen or progress. Diagnosis Primary Impression: Preseptal cellulitis of left eye Patient Instructions: General Instructions Additional Instructions: Medications as directed. Follow-up with her primary physician. Return if symptoms worsen or progress. Med/Other Pt SpecificInfo: Prescription(s) given Scripts Ibuprofen (Ibuprofen) 600 Mg Tab 600 MG PO Q6H Y for Pain/Inflammation, #20 TAB 0 Refills Prov: Erik Sullivan MD 01/20/17 Clindamycin (Cleocin) 150 Mg Cap 150 MG PO Q6H for Infection for 10 Days, CAP 0 Refills Prov: Erik Sullivan MD 01/20/17 Disposition: 01 DISCHARGE HOME Condition: Stable Erik Sullivan MD Jan 20, 2017 18:02
[2017-01-20 18:07] LABS: AUTOMATED NEUTROPHIL # 3.4 TH/MM3 (1.8-7.7); BASOPHIL # 0.1 TH/MM3 (0-0.2); EOSINOPHIL # 0.1 TH/MM3 (0-0.4); HEMATOCRIT 39.3 % (35.0-46.0); HEMO FLAGS DIFF FINAL; LYMPH % 33.5 % (9.0-44.0); LYMPHOCYTE # 2.1 TH/MM3 (1.0-4.8); MEAN CELL VOLUME 91.6 FL (80.0-100.0); MEAN CORPUSCULAR HEMOGLOBIN 31.3 PG (27.0-34.0); MEAN CORPUSCULAR HGB CONC 34.2 % (32.0-36.0); MONO % 10.3 % (0.0-8.0); NEUT % 53.2 % (16.0-70.0); PLATELET COUNT 228 TH/MM3 (150-450); RED BLOOD COUNT 4.29 MIL/MM3 (4.00-5.30); RED CELL DISTRIBUTION WIDTH 12.1 % (11.6-17.2); WHITE BLOOD COUNT 6.3 TH/MM3 (4.0-11.0)
[2017-01-20 18:17] LABS: CHLORIDE 108 MEQ/L (98-107); POTASSIUM 3.4 MEQ/L (3.5-5.1); SODIUM (NA) 141 MEQ/L (136-145)
[2017-01-20 18:22] LABS: ANION GAP 6 MEQ/L (5-15); BICARBONATE 26.9 MEQ/L (21.0-32.0); BLOOD UREA NITROGEN 9 MG/DL (7-18)
[2017-01-20 18:25] LABS: ALT (GPT) 14 U/L (10-53); AST (GOT) 13 U/L (15-37); GLOMERULAR FILTRATION RATE 93 ML/MIN (>89)
[2017-01-20 18:26] LABS: TOTAL BILIRUBIN ADULT 0.5 MG/DL (0.2-1.0)
[2017-01-20 18:28] LABS: ALKALINE PHOSPHATASE 43 U/L (45-117)
[2017-01-20] MEDS ORDERED: IOHEXOL 350 MG/ML 10 ML VIAL (for RAD DIAG) IVCONTRAST ONE (18:28)
[2017-01-20 18:30] VITALS: BP 141/48; PULSE 66; RESP 18; O2SAT 94
--- NOTE | 2017-01-20 18:45 | RADRPT ---
EXAM DATE/TIME: 01/20/2017 18:24 [facility] COMPARISON: No previous studies available for comparison. INDICATIONS : Left facial swelling and pain. IV CONTRAST: 95 cc Omnipaque 350 (iohexol) IV RADIATION DOSE: 29.83 CTDIvol (mGy) MEDICAL HISTORY : None SURGICAL HISTORY : Hysterectomy. ENCOUNTER: Initial ACUITY: 3 days PAIN SCALE: 5/10 LOCATION: Left facial TECHNIQUE: Volumetric scanning of the facial bones was performed. Using automated exposure control and adjustme nt of the mA and/or kV according to patient size, radiation dose was kept as low as reasonably achiev able to obtain optimal diagnostic quality images. DICOM format image data is available electronicall y for review and comparison. FINDINGS: ORBITS: The orbital and infraorbital osseous structures are intact. The retroconal structures have a normal configuration. No radiopaque foreign bodies are seen. NASAL BONE: The nasal bone and maxillary spine are intact ZYGOMATIC ARCHES: Symmetric without evidence of fracture. SINUSES: The maxillary, ethmoid and frontal sinuses are intact. No air-fluid levels seen. NASAL CAVITY: The nasal septum is intact and midline. The lacrimal ducts are intact. SOFT TISSUES: No radiopaque foreign bodies seen. No soft-tissue swelling is seen. INTRACRANIAL: No intracranial air seen. CRIBIFORM PLATE: Grossly intact. CONCLUSION: Negative CT of the face. No fluid collections are demonstrated. Sinuses are clear. Soft tissues withi n normal limits, including the post septal soft tissues of both orbits. Gigi Juárez MD on January 20, 2017 at 18:41 Board Certified Radiologist. This report was verified electronically.
[2017-01-20] MEDS ORDERED: IBUP-232 PO (18:51)
[2017-01-20] MEDS ORDERED: CLIN150 PO (18:51)
[2017-01-20 20:04] VITALS: BP 112/59
== END 2017-01-20 20:10 | disposition home or self-care (01) ==
LOC: PHED 15:41 → PHEFT 20:10
DX: L03.211 Cellulitis of face (principal)
CPT/HCPCS: 70487; 80053; 83605; 85025; 87040; 96361; 96365; 96375; 99285; J2270; J2405; J7030; Q9967

== ENCOUNTER 2017-04-09 18:20 | Emergency (ER) | payer MEDICAID ==
[~2017-04-09] VITALS: Ht 175.3 cm; Wt 69.0 kg
[~2017-04-09 18:20] MED LIST changes: -BACT800T5 PO; +CLIN150 PO; +IBUP-232 PO
[2017-04-09 18:31] VITALS: BP 132/61; PULSE 69; RESP 16; TEMP 98.4; O2SAT 100
--- NOTE | 2017-04-09 19:37 | PD ---
HPI Chief Complaint: Eye Problems/Injury Time Seen by Provider: 18:49 Travel History International Travel<30 days: No Contact w/Intl Traveler<30days: No Traveled to known affect area: No History of Present Illness HPI 37 year old female with left maxillary sinus pain and tenderness 3 days. Patient reports she's had 2 previous episodes of periorbital cellulitis that was resistant to clindamycin and treated with Keflex. She reports this pain feels similar. Denies eye pain or visual changes. She reports mild erythema and swelling to the left cheek. She denies headache, nasal congestion, fever or chills. Symptom severity is moderate. PFSH Past Medical History Hx Anticoagulant Therapy: No Asthma: Yes (As child ) Cancer: No Cardiovascular Problems: Yes (H/O irr. HR) Chest Pain: Yes Diabetes: No Diminished Hearing: No Endocrine: No Gastrointestinal Disorders: Yes (reflux) GERD: Yes Genitourinary: No Headaches: Yes Hepatitis: No Hiatal Hernia: No Hypertension: No Immune Disorder: No Musculoskeletal: Yes (Chronic neck and back pain) Neurologic: Yes (Headaches, migraines) Psychiatric: No Reproductive: Yes (Endometriosis ) Respiratory: No Immunizations Current: Yes Thyroid Disease: No Influenza Vaccination: No ?: Not Menopausal: No : 4 Para: 3 Miscarriage: 0 : 1 Ovarian Cysts: Yes Past Surgical History Abdominal Surgery: Yes (Laproscopic surgery for endometriosis) AICD: No Genitourinary Surgery: Yes (ENDOMITRIOSIS) Gynecologic Surgery: Yes (laparoscopy) Hysterectomy: Yes Joint Replacement: No Pacemaker: No Other Surgery: Yes (LAPROSCOPY) Family History Family Myocardial Infarction: Yes (FATHER) Social History Alcohol Use: No Tobacco Use: Yes (1 PPD) Substance Use: No Allergies-Medications (Allergen,Severity, Reaction): Coded Allergies: acetaminophen (Unverified Allergy, Severe, stomach pain, 04/09/17) succinylcholine (Unverified Allergy, Severe, maternal grandmother had hypertension and bronchospasms, 04/09/17) Reported Meds & Prescriptions Reported Meds & Active Scripts Active Ibuprofen 800 Mg Tab 800 Mg PO Q6HR PRN Keflex (Cephalexin) 500 Mg Cap 500 Mg PO Q6H 10 Days Review of Systems Except as stated in HPI: all other systems reviewed are Neg General / Constitutional: No: Fever Physical Exam Narrative GENERAL: Alert female who is well-appearing SKIN: Warm and dry. HEAD: Normocephalic. EYES: No scleral icterus. No injection or drainage. Pupils equal round and reactive. EOMs intact. No pain with EOMs. No lid swelling or erythema. ENT: Tenderness over the left maxillary sinus Mucosa pink and moist. No erythema or exudates. No uvular edema. No uvular, palatal, or tonsillar deviation. Airway patent. Nasal turbinates appear normal without nasal blood, purulent drainage or septal hematoma. NECK: Supple, trachea midline. No JVD or lymphadenopathy. CARDIOVASCULAR: Regular rate and rhythm without murmurs, gallops, or rubs. RESPIRATORY: Breath sounds equal bilaterally. No accessory muscle use. GASTROINTESTINAL: Abdomen soft, non-tender, nondistended. MUSCULOSKELETAL: No cyanosis, or edema. BACK: Nontender without obvious deformity. No CVA tenderness. Data Data Last Documented VS Vital Signs Date Time Temp Pulse Resp B/P (MAP) Pulse Ox O2 Delivery O2 Flow Rate FiO2 04/09/17 18:31 98.4 69 16 132/61 (84) 100 MDM Medical Decision Making Medical Screen Exam Complete: Yes Emergency Medical Condition: Yes Differential Diagnosis Sinusitis, periorbital cellulitis, dental abscess Narrative Course 37 year old female with left Maxillary sinus pain and tenderness 3 days. Patient reports she's had 2 previous episodes of periorbital cellulitis that was resistant to clindamycin and treated with Keflex. He reports this pain is similar to previous episodes of periorbital cellulitis. She denies eye pain or visual disturbances. On exam she has tenderness of the left maxillary sinus. There is no overlying erythema or swelling. She has painless extraocular eye movements. Eyes not injected. There is no periorbital swelling. Patient will be put on Keflex again as patient insists this is the only thing that treated her periorbital cellulitis in the past. She was instructed to follow-up with her policy loan calculator. She agrees to plan Diagnosis Primary Impression: Facial pain Referrals: Primary Care Physician Additional Instructions: Take antibiotics as prescribed. Follow-up with her primary doctor. Return to emergency department if he developed new or worsening symptoms. Scripts Ibuprofen (Ibuprofen) 800 Mg Tab 800 MG PO Q6HR Y for PAIN, #40 TAB 0 Refills Prov: Karen Farias INSPECTOR RECEIVING 04/09/17 Cephalexin (Keflex) 500 Mg Cap 500 MG PO Q6H for Infection for 10 Days, #40 CAP 0 Refills Prov: Karen Farias 04/09/17 Disposition: 01 DISCHARGE HOME Condition: Stable Karen Farias Apr 09, 2017 19:37
[2017-04-09] MEDS ORDERED: CEPH-460 PO (19:41)
[2017-04-09] MEDS ORDERED: IBUP1TAB7 PO (19:42)
== END 2017-04-09 19:49 | disposition home or self-care (01) ==
LOC: PHEFT 18:20
DX: R51 Headache (principal); F17.200 Nicotine dependence, unspecified, uncomplicated
CPT/HCPCS: 99283